=== PATIENT | female | born 1955 | race Caucasian/White ===

== ENCOUNTER 2018-06-28 02:00 | Outpatient (CLI) | payer MEDICAID, SELFPAY ==
[2018-06-28 08:29] LABS: Hemoglobin A1C 6.8 % (4.5-6.2)
[2018-06-28 09:17] LABS: COMMENT (LAB VIEW ONLY) 26.88 mg/dL
[2018-06-28 09:22] LABS: Anion Gap 12.6 mmol/L (3-11); BUN 14 mg/dL (7-18); CO2 25.4 mmol/L (21.0-32.0); CREATININE 0.72 mg/dL (0.55-1.02); Calcium 9.8 mg/dL (8.5-10.1); Chloride 104 mmol/L (98-107); Cholesterol 119 mg/dL (50-200); Glucose 85 mg/dL (70-100); HDL Cholesterol 36 mg/dL (40-60); LDL CHOLESTEROL 60 mg/dL (<100); Magnesium 2.1 mg/dL (1.8-2.4); Potassium 3.9 mmol/L (3.5-5.1); Sodium 142 mmol/L (136-145); Triglyceride 123 mg/dL (30-150)
[2018-06-29 10:16] LABS: HIV-1/2 Ag & Ab Screen Negative (NEGAT)
[2018-06-29 10:19] LABS: Hepatitis C Ab w Rflx HCV PCR Negative (NEGAT)
== END 2018-06-28 02:20 ==
PROVIDERS: PCP Nurse Practitioner Family; Visit Provider Nurse Practitioner Family
DX: I10 Essential (primary) hypertension (principal); E78.5 Hyperlipidemia, unspecified; E83.42 Hypomagnesemia; E11.319 Type 2 diabetes mellitus with unspecified diabetic retinopathy without macular edema; Z11.59 Encounter for screening for other viral diseases; Z11.4 Encounter for screening for human immunodeficiency virus [HIV]
CPT/HCPCS: 36415; 80048; 80061; 83721; 86803; 87389; 82043; 82570; 83036; 83735

== ENCOUNTER 2019-04-30 06:01 | Day surgery (SDC) | payer MEDICAID, SELFPAY ==
[2019-04-30 06:15] VITALS: BP 108/67; PULSE 92; RESP 19; TEMP 36.7; O2SAT 97
[2019-04-30] MEDS: Lactated Ringers 1,000 ML 80 ML IV (06:45)
--- NOTE | 2019-04-30 07:17 | W.COLOREPORT ---
Date of service: 04/30/19 Time of Service: 07:23 Colonoscopy Report Date of procedure: 04/30/19 Pre-op diagnosis general: Hx of polyps Post-op diagnosis procedure note: same Procedure: Colonoscopy Surgeon: Julisa Salguero Anesthesia proc note operative: other (General/ ASA 2/[place], MERCEDES) Estimated blood loss (mL): 0 Pathology: none sent Complications: None Disposition: same day Indications: 64 y/o female with history of Type 2 DM, HTN and GERD presents for colonoscopy screening pre-op. Her last screening was in 2014 , which was remarkable for tubulovillious adenoma. She denies a family history of colon cancer. She denies any changes in bowel habits including bloody or black tarry stools, abdominal pain, diarrhea or constipation. She denies constitutional symptoms. Denies use of marijuana or any other recreational or illegal drugs. Prep: Miralax/Dulcolax Procedure Start Time: 07:23 Procedure End Time: 07:51 Retraction Time: 17 minutes Findings: Marginal prep with stool throughout the colon Procedure Description: After informed consent was obtained the patient was taken to the procedure room and placed in a left decubitous position. Monitors were applied and a time out was done. The patients name, date of , procedure, allergies to medications and metal in their body was reviewed. The patient was then sedated. Once sedated and comfortable a rectal exam was done. External exam was normal. Internal exam revealed a normal sphincter tone and no palpable masses. The scope was then introduced and retro-flexed. No internal hemorrhoids were identified. The scope was then advanced to the cecum without difficulty. The TI and appendiceal orifice were identified. The prep was marginal. There was a lot of liquid and some formed stool throughout the colon. 1 L of Fluid was used to clean and suction as much of it as possible. The scope was then slowly retracted over 17 minutes back into the rectum. There were no Polyps and no diverticulosis. The scope was removed and the patient was woken up and taken back to Same day surgery in stable condition. The patient tolerated the procedure well and there were no immediate complications. Follow up: The patient should follow up in 3 years because of the marginal prep. Small polyps could have been missed.
--- NOTE | 2019-04-30 07:19 | W.PM.DSUDISC ---
Discharge Plan Disposition Patient Disposition: HOME Condition: Good Discharge Details Reason For Visit: Hx of polyps Attending Provider: Julisa Salguero Primary Care Provider: Cherri Kirkland Home Meds and New Rx's Prescriptions: Continued (DME) Blood Glucose Test Strip See Rx Instructions .ROUTE .MEDSUPPLY Qty: 100 RF: 3 (DME) lancets Misc See Rx Instructions .ROUTE .MEDSUPPLY Qty: 100 RF: 3 glipizide 5 mg tablet extended release 24hr 15 mg PO QAM Qty: 270 RF: 3 Jardiance 25 mg tablet 25 mg PO DAILY Qty: 90 RF: 3 metformin 1,000 mg tablet See Rx Instructions PO See Instructions MDD 2500 mg Qty: 225 RF: 3 (DME) blood-glucose meter [onlinetoursTouch Ultra2 Meter] 1 EACH kit 1 ea Miscellaneous QID Qty: 1 RF: 0 aspirin 81 MG tablet,delayed release (DR/EC) 81 mg PO DAILY Qty: 90 RF: 3 (DME) Futuro Restoring Medium 1 EACH misc 1 ea Miscellaneous DAILY Qty: 2 RF: 0 (DME) OneTouch Ultra Test 1 EACH strip 1 ea Miscellaneous QID Qty: 360 RF: 3 omeprazole 40 MG capsule,delayed release(DR/EC) 40 mg PO DAILY Qty: 90 RF: 3 cetirizine [Zyrtec] 10 MG tablet 10 mg PO DAILY PRNQty: 90 RF: 3 losartan 50 mg tablet 50 mg PO DAILY Qty: 90 RF: 3 atorvastatin [Lipitor] 40 mg tablet 40 mg PO DAILY Qty: 90 RF: 3 magnesium oxide 400 mg (241.3 mg magnesium) tablet 400 mg PO BID Qty: 180 RF: 3 Discharge Instructions Additional Instructions: Findings: NO polyps Follow up: 3 years because the prep was not great. There was a lot of stool still in the colon so small polyps could have been missed Please call if you develop: fevers >101.5 Nausea or Vomiting Abdominal pain that is not transient DAY SURGERY UNIT POST ENDOSCOPY INSTRUCTIONS 1. Because there will be medication in your system for the next 24 hours, you may feel a little sleepy. Your coordination will be affected. Therefore: a. Do not drive or operate dangerous equipment for 24 hours. b. Do not drink alcohol beverages for 24 hours (not even beer). c. Plan to go home and rest for the day. 2. Generally there are no restrictions on your activity after a day or so has gone by, but you may feel a bit fatigued for a few days. 3 After you arrive home you may have a light meal and return to a normal diet as you can tolerate it without feeling sick to your stomach. 4. After surgery, you may feel pain or discomfort. This should be only transient, but if it persists please contact your doctor. 5. If there are any questions regarding the findings of your procedure, please feel free to contact your doctor. 6. If you are unable to contact your doctor with a problem, contact the hospital at [phone]. 7. Continue all your regular medications unless directed otherwise. I understand the above instructions and have no questions. Signature of Patient or Responsible Adult Escort Date/Time Name of Responsible Adult Escort Signature of Nurse Date/Time Activity:: Activity as Tolerated Diet:: As Tolerated Discharge Orders Discharge Orders: Discharge Order (Routine); Ordered 04/30/19 Ordered By: Julisa Salguero
[2019-04-30 08:35] VITALS: BP 115/72; PULSE 81; RESP 18; TEMP 36.3; O2SAT 98
== END 2019-04-30 08:53 | disposition home or self-care (01) ==
PROVIDERS: PCP Nurse Practitioner Family; Visit Provider Surgery
PROC: 0DJD8ZZ Inspection of Lower Intestinal Tract, Via Natural or Artificial Opening Endoscopic (ICD-10-PCS; CPT 45378; principal; 2019-04-30 07:30)
DX: Z12.11 Encounter for screening for malignant neoplasm of colon (principal); Z86.010 Personal history of colon polyps; E11.9 Type 2 diabetes mellitus without complications; Z79.84 Long term (current) use of oral hypoglycemic drugs; I10 Essential (primary) hypertension; K21.9 Gastro-esophageal reflux disease without esophagitis
CPT/HCPCS: 45378; J2704

== ENCOUNTER 2019-05-06 09:35 | Emergency (ER) | payer MEDICAID, SELFPAY ==
[2019-05-06 09:40] VITALS: BP 133/71; PULSE 104; RESP 18; TEMP 36.8; O2SAT 97
--- NOTE | 2019-05-06 10:26 | ED.GENADUL_ITS ---
Discharge Plan Disposition Patient Disposition: HOME Condition: Stable Discharge Details Chief Complaint: Cellulitis Clinical Impression: Cellulitis Primary Care Provider: Cherri Kirkland ED Provider: Zaina Barajas Home Meds and New Rx's Prescriptions: New cephalexin [Keflex] 500 mg capsule 500 mg PO QID Qty: 40 RF: 0 No Action (DME) Blood Glucose Test Strip See Rx Instructions .ROUTE .MEDSUPPLY Qty: 100 RF: 3 (DME) lancets Misc See Rx Instructions .ROUTE .MEDSUPPLY Qty: 100 RF: 3 glipizide 5 mg tablet extended release 24hr 15 mg PO QAM Qty: 270 RF: 3 Jardiance 25 mg tablet 25 mg PO DAILY Qty: 90 RF: 3 metformin 1,000 mg tablet See Rx Instructions PO See Instructions MDD 2500 mg Qty: 225 RF: 3 (DME) blood-glucose meter [OneTouch Ultra2 Meter] 1 EACH kit 1 ea Miscellaneous QID Qty: 1 RF: 0 aspirin 81 MG tablet,delayed release (DR/EC) 81 mg PO DAILY Qty: 90 RF: 3 (DME) Futuro Restoring Medium 1 EACH misc 1 ea Miscellaneous DAILY Qty: 2 RF: 0 (DME) OneTouch Ultra Test 1 EACH strip 1 ea Miscellaneous QID Qty: 360 RF: 3 omeprazole 40 MG capsule,delayed release(DR/EC) 40 mg PO DAILY Qty: 90 RF: 3 cetirizine [Zyrtec] 10 MG tablet 10 mg PO DAILY PRNQty: 90 RF: 3 losartan 50 mg tablet 50 mg PO DAILY Qty: 90 RF: 3 atorvastatin [Lipitor] 40 mg tablet 40 mg PO DAILY Qty: 90 RF: 3 magnesium oxide 400 mg (241.3 mg magnesium) tablet 400 mg PO BID Qty: 180 RF: 3 Discharge Instructions Instructions: Cellulitis (ED) Additional Instructions: Please elevate legs as discussed. Please maintain a low-salt or no salt diet. Use compression stockings as discussed. Use antibiotic as prescribed. Have prompt recheck with your primary care doctor in the next 2 to 3 days Return to have ultrasound tomorrow morning as discussed. Continue your daily aspirin. Return for any worsening, concerns or alarming symptoms sooner if needed. Observe for any fevers, increased in redness, swelling or pain in the leg. Return immediately for concerns Discharge Data Discharge Date/Time-TO BE ENTERED AT DEPARTURE: 05/06/19 11:10 Medical Decision Making Very pleasant 64-year-old patient presenting to the emergency room for complaints of new onset of redness in the left foot. Patient reports chronic distal edema present. She is noncompliant with compression stockings does not maintain a low-salt diet. Patient is a diabetic. No complaints of open wounds or injury. Patient has no palpable tenderness of the foot does have notable diffuse erythema consistent with cellulitis. Patient has no calf pain. Swelling of her legs is unchanged and stable. Patient has no concern of injury nor do I have any concern of palpable tenderness. patient does have some crusting noted over the dorsal foot lateral ankle area likely due to physiologic drainage due to's skin stretching. Conceivably this is her source of infection. No ulcers or deep wounds noted of the foot. No pain with range of motion of calf or calf pain with palpation. Clinically I feel this patient has cellulitis although DVT is possible. We will order outpatient ultrasound to be performed in the morning. Patient is on aspirin and will continue aspirin. Patient agrees with plan of care. Spoke at length regarding low-salt diet, elevating legs and use of compression stockings. Patient reports her understanding and agrees with plan of care. Will give initial dose of Rocephin at this time plan to provide Keflex orally. Previous renal function reviewed. Will hold on any MRSA coverage agents as I have a low suspicion for MRSA at this time. Recommend close follow-up with PCP in the next 2 to 3 days. Patient put on follow-up list. Patient will call her PCP as well. The patient was stable and requested discharge. Prior to discharge, my usual and customary return precautions were reviewed with the patient - this included follow-up instructions and reasons to return to the Emergency Department if conditions worsens, does not improve as expected, or other new concerns arise. HPI General Date/Time Provider Initiated Documentation: 05/06/19 09:45 . HPI Narrative: Is a very pleasant 64-year-old patient presenting to the ER for complaints of left lower leg redness which was noted this morning. Patient reports she is a diabetic. Patient denies any injury or trauma to the leg. She does report she cares for her grandkids who occasionally stepped on her foot but she has absolutely no foot pain at this time. Patient denies any pain with ambulation. Patient does report swelling of the legs chronically which seems unchanged today. Patient's only complaint is new redness of her leg noted this morning. Patient denies any calf pain. Patient denies any difficulty breathing shortness of other wheezing. No systemic complaints. Specifically no fever, chills, nausea, vomiting. Eating and drink without difficulty. No other concerns or complaints at this time. Denies any open wounds. Related Data Home Medications Medication Instructions Recorded Confirmed blood-glucose meter [OneTouch #1 unit 08/15/14 05/07/19 Ultra2 Meter] aspirin 81 mg PO DAILY #90 tab-cap 10/09/14 05/07/19 Futuro Restoring Medium #2 ea 10/09/15 05/07/19 OneTouch Ultra Test #360 strip 11/18/16 05/07/19 omeprazole 40 mg PO DAILY #90 tab-cap 12/27/16 05/07/19 cetirizine [Zyrtec] 10 mg PO DAILY PRN #90 tab-cap 09/23/17 05/07/19 losartan 50 mg tablet 50 mg PO DAILY #90 tab-cap 06/26/18 05/07/19 atorvastatin 40 mg tablet 40 mg PO DAILY #90 tab-cap 09/06/18 05/07/19 blood sugar diagnostic #100 each 11/02/18 05/07/19 lancets #100 each 11/02/18 05/07/19 empagliflozin 25 mg tablet 25 mg PO DAILY #90 tab-cap 02/01/19 05/07/19 glipizide 5 mg tablet, extended 15 mg PO QAM #270 tab-cap 02/01/19 05/07/19 release 24 hr metformin 1,000 mg tablet See Rx Instructions PO See 02/01/19 05/07/19 Instructions #225 tab-cap MDD 2500 mg magnesium oxide 400 mg (241.3 mg 400 mg PO BID #180 tab-cap 03/05/19 05/07/19 magnesium) tablet cephalexin [Keflex] 500 mg PO QID #40 cap 05/06/19 05/07/19 Previous Rx's Medication Instructions Recorded omeprazole 40 mg PO DAILY #90 tab-cap 12/27/16 losartan 50 mg tablet 50 mg PO DAILY #90 tab-cap 06/26/18 atorvastatin 40 mg tablet 40 mg PO DAILY #90 tab-cap 09/06/18 blood sugar diagnostic #100 each 11/02/18 lancets #100 each 11/02/18 empagliflozin 25 mg tablet 25 mg PO DAILY #90 tab-cap 02/01/19 glipizide 5 mg tablet, extended 15 mg PO QAM #270 tab-cap 02/01/19 release 24 hr metformin 1,000 mg tablet See Rx Instructions PO See 02/01/19 Instructions #225 tab-cap MDD 2500 mg magnesium oxide 400 mg (241.3 mg 400 mg PO BID #180 tab-cap 03/05/19 magnesium) tablet cephalexin [Keflex] 500 mg PO QID #40 cap 05/06/19 Allergies Allergy/AdvReac Type Severity Reaction Status Date / Time metronidazole Allergy Intermediate terrible Verified 05/07/19 11:26 burning sensation in chest amlodipine AdvReac Intermediate leg Verified 05/07/19 11:26 swelling lisinopril AdvReac Intermediate Leg Verified 05/07/19 11:26 swelling General Stated Complaint: Cellulitis LIZETH: 3 Review of Systems All systems reviewed & are unremarkable except as noted in HPI and below Constitutional Constitutional: Denies chills, Denies fatigue, Denies fever(s), Denies headache(s), Denies malaise and Denies weakness ENT Ears, Nose, Mouth, and Throat: Denies headache(s) Musculoskeletal Musculoskeletal: Denies numbness and Denies tingling Integumentary/Breasts Skin/Breast: Reports erythema and Denies wounds Neurologic Neurologic: Denies headache(s), Denies numbness, Denies tingling and Denies weakness Endocrine Endocrine: Denies fatigue [facility] Medical History Allergic rhinitis (Chronic 07/03/15) Bilateral lower extremity edema (Chronic) Longstanding, worse in summer, probable venous insufficiency Colon polyp (Resolved) Last [place]: 11/22/14 w/ Dr. Kameron Moore, tubulovillous adenoma, repeat 3 years Essential hypertension (Chronic) Gastroesophageal reflux disease (Chronic 07/22/14) Atypical chest pain 2000 --> neg stress test --> GERD Hyperlipidemia, unspecified (Chronic) 06/2018 labs: lipid panel acceptable on high potency statin, continue Hypomagnesemia (Chronic 04/23/16) Immunization refused (Chronic 04/23/16) Microalbuminuria due to type 2 diabetes mellitus (Chronic 01/21/16) Mild nonproliferative diabetic retinopathy associated with type 2 diabetes mellitus (Chronic 10/09/15) B/L, also with mild hypertensive retinopathy B/L TUCKER (obstructive sleep apnea) Presbyopia (Chronic 08/26/16) Tobacco use disorder (Chronic 07/22/14) Type 2 diabetes mellitus with retinopathy (Chronic 01/21/16) Surgical History (Updated 04/30/19 @ 07:19 by Julisa Salguero MD) Adenoidectomy Colonoscopy - MAC (Resolved 04/30/19) 2015- Tubullovillous adenoma Tonsillectomy (Resolved) UPPP (Uvulopalatopharyngoplasty) (Resolved 07/22/92) Social History Smoking/Tobacco Use Status: Current every day Tobacco Type: cigarettes Smoking packs per day: 1 Smoking cigarettes per day: 20.0 Years smoked: 30 Smoking pack- years: 30.00 Alcohol Intake: never Drug use: Never Substance use type: does not use Adopted: No Caregiver/Support person: No Foster care: No Household members: spouse Number of Children: 3 Communication Needs: None Education Level: high school Details: 11th grade 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 Pets and animals: Yes Pets and animals: dog(s) Sexually active: Yes Current gender identity: female What type of physical activity do you participate in: walking Duration: 60-90 minutes/day Frequency: daily Seatbelt use: always Drive intox or ride w/intox superintendent drivers: No Water heater temp set <120 deg: Yes Working smoke detector in home: Yes Fire extinguisher in home: Yes Carbon monox detector in home: Yes Firearms in home: No Do you feel safe at home: Yes Do you feel safe in your relationship?: Yes Victim of physical abuse: No Victim of emotional abuse: No Victim of sexual abuse: No Exam Narrative Exam Narrative: CONST: Healthy appearing patient, in no acute distress. Well hydrated. Alert and oriented. CHEST: Normal insepection of the chest. RESP: Normal respiratory effort. Speaking full sentences. No cough. No audible wheezing. No retractions. Breath sounds clear bilaterally. No wheezing, rhonchi or rales CARDIO: No JVD. No murmur, regular rate and rhythm MUSCULOSKELETAL: Normal Gait. FROM of all extremities. Bilateral edema present in the ankles and feet which is symmetrical, moderate erythema of the diffuse left foot. There is mild crusting noted along the lateral ankle but no associated wounds. No ulcers noted. No obvious skin breakdown. Pulses intact. Sensation intact. Full range of motion. No bony pain with palpation. Er ythema extends from the foot just proximal to the ankle. No lymphangitis associated. SKIN: Normal. Dry. No rashes. See above note Course Vital Signs Vital signs: Vital Signs Temperature 36.8 C 05/06/19 09:40 Pulse 104 H 05/06/19 09:40 Respiratory Rate 18 05/06/19 09:40 Blood Pressure 133/71 05/06/19 09:40 Pulse Oximetry 97 05/06/19 09:40 Temperature 36.8 C 05/06/19 09:40 Temperature Source Temporal Artery Scan 05/06/19 09:40 Pulse 104 H 05/06/19 09:40 Respiratory Rate 18 05/06/19 09:40 Respiratory Effort 05/06/19 09:59 Blood Pressure 133/71 05/06/19 09:40 Blood Pressure Position Sitting 05/06/19 09:40 Pulse Oximetry 97 05/06/19 09:40 Oxygen Delivery Method Room Air 05/06/19 09:40 Oxygen Flow Rate 0 05/06/19 09:40 Pain Level 2 05/06/19 09:40
--- NOTE | 2019-05-06 10:26 | NUR.NOTE ---
Nursing Note: Referral faxed to PCP for follow up in 2 to 3 days. Eileen Michelle.
[2019-05-06] MEDS: cefTRIAXone 1 GM/50 ML BAG IVPB (10:38)
== END 2019-05-06 11:10 | disposition home or self-care (01) ==
PROVIDERS: Emergency Provider Physician Assistant; PCP Nurse Practitioner Family
DX: M79.89 Other specified soft tissue disorders (principal); Z71.2 Person consulting for explanation of examination or test findings
CPT/HCPCS: 99281; J0696

== ENCOUNTER 2019-05-07 09:05 | Outpatient (CLI) | payer MEDICAID, SELFPAY ==
--- NOTE | 2019-05-07 10:53 | DI.US_ITS ---
EXAM: US LOWER EXTREMITY VENOUS LT US LOWER EXTREMITY VENOUS LT CLINICAL HISTORY: LEG SWELLING, ? DVT. LEG SWELLING, ? DVT TECHNIQUE: Lower extremity venous ultrasound performed using grayscale, color-flow, and spectral Dop pler analysis. COMPARISON: No exams were available for comparison FINDINGS: The common femoral, femoral and popliteal veins demonstrate normal compressibility, augmentation, and color Doppler. The posterior tibial veins are patent. The saphenous vein appears free of thrombus. No Lundy's cyst or hematoma is seen. IMPRESSION: No evidence of DVT.
== END 2019-05-07 09:25 ==
PROVIDERS: PCP Nurse Practitioner Family; Visit Provider Physician Assistant
DX: R22.42 Localized swelling, mass and lump, left lower limb (principal)
CPT/HCPCS: 93971

== ENCOUNTER 2019-05-07 11:13 | Emergency (ER) | payer MEDICAID, SELFPAY ==
[2019-05-07 11:24] VITALS: BP 137/65; PULSE 89; RESP 18; TEMP 36.4; O2SAT 96
--- NOTE | 2019-05-07 11:33 | ED.GENADUL_ITS ---
Discharge Plan Disposition Patient Disposition: HOME Condition: Stable Discharge Details Chief Complaint: Recheck Clinical Impression: Left leg swelling Primary Care Provider: Cherri Kirkland ED Provider: Anamaria Pandey Home Meds and New Rx's Prescriptions: Continued (DME) Blood Glucose Test Strip See Rx Instructions .ROUTE .MEDSUPPLY Qty: 100 RF: 3 (DME) lancets Misc See Rx Instructions .ROUTE .MEDSUPPLY Qty: 100 RF: 3 glipizide 5 mg tablet extended release 24hr 15 mg PO QAM Qty: 270 RF: 3 Jardiance 25 mg tablet 25 mg PO DAILY Qty: 90 RF: 3 metformin 1,000 mg tablet See Rx Instructions PO See Instructions MDD 2500 mg Qty: 225 RF: 3 (DME) blood-glucose meter [SunriseTouch Ultra2 Meter] 1 EACH kit 1 ea Miscellaneous QID Qty: 1 RF: 0 aspirin 81 MG tablet,delayed release (DR/EC) 81 mg PO DAILY Qty: 90 RF: 3 (DME) Futuro Restoring Medium 1 EACH misc 1 ea Miscellaneous DAILY Qty: 2 RF: 0 (DME) OneTouch Ultra Test 1 EACH strip 1 ea Miscellaneous QID Qty: 360 RF: 3 omeprazole 40 MG capsule,delayed release(DR/EC) 40 mg PO DAILY Qty: 90 RF: 3 cetirizine [Zyrtec] 10 MG tablet 10 mg PO DAILY PRNQty: 90 RF: 3 losartan 50 mg tablet 50 mg PO DAILY Qty: 90 RF: 3 atorvastatin [Lipitor] 40 mg tablet 40 mg PO DAILY Qty: 90 RF: 3 magnesium oxide 400 mg (241.3 mg magnesium) tablet 400 mg PO BID Qty: 180 RF: 3 cephalexin [Keflex] 500 mg capsule 500 mg PO QID Qty: 40 RF: 0 Discharge Instructions Instructions: Leg Edema (ED) Additional Instructions: Take the antibiotics until finished. Wear your compression stockings daily. Be sure to keep your legs elevated. Be sure to control your blood sugar as high blood sugar is a risk for infection. Follow-up with your primary care doctor within 1 week. Return to the emergency department with any worsening or new concerning symptoms such as fever, worsening pain, redness or swelling. Discharge Data Discharge Date/Time-TO BE ENTERED AT DEPARTURE: 05/07/19 11:49 Discharge Physician: Anamaria Pandey Medical Decision Making 64-year-old female with history of diabetes who was seen here yesterday and diagnosed with left leg cellulitis and started on Keflex who returns today for results of her lower extremity Doppler ultrasound to rule out DVT. Left lower extremity ultrasound negative for DVT. She states she has been taking her Keflex and her redness and swelling is much improved. She was referred for an ultrasound here this morning as it was not available yesterday over the weekend. Her left leg appears minimally edematous but there is no obvious evidence of cellulitis. She is neurovascularly intact. She is wearing compression stockings. She was advised to continue her Keflex, compression stockings and elevation of her leg is much as possible. Advised to follow up with the primary care doctor for re-evaluation. Usual and customary return precautions given prior to discharge. Imaging Data Radiologic Study: Radiologist's impression: US LOWER EXTREMITY VENOUS LT CLINICAL HISTORY: LEG SWELLING, ? DVT. LEG SWELLING, ? DVT TECHNIQUE: Lower extremity venous ultrasound performed using grayscale, color- flow, and spectral Doppler analysis. COMPARISON: No exams were available for comparison FINDINGS: The common femoral, femoral and popliteal veins demonstrate normal compressibility, augmentation, and color Doppler. The posterior tibial veins are patent. The saphenous vein appears free of thrombus. No Lundy's cyst or hematoma is seen. IMPRESSION: No evidence of DVT. HPI General Mode of arrival: ambulatory . Date/Time Provider Initiated Documentation: 05/07/19 11:16 . Limitations to Documentation: no limitations . Information obtained by: patient . History of Present Illness 64 year old F presents to the emergency department with the chief complaint of here for results of doppler leg ultrasound, Patient started experiencing this minute(s) (20) No relieving factors improve symptom(s), No exacerbating factors reported . Patient notes no other symptoms.. Patient did receive the following treatments prior to arrival, other (Taking her antibiotics regularly) Related Data Home Medications Medication Instructions Recorded Confirmed blood-glucose meter [OneTouch #1 unit 08/15/14 05/07/19 Ultra2 Meter] aspirin 81 mg PO DAILY #90 tab-cap 10/09/14 05/07/19 Futuro Restoring Medium #2 ea 10/09/15 05/07/19 OneTouch Ultra Test #360 strip 11/18/16 05/07/19 omeprazole 40 mg PO DAILY #90 tab-cap 12/27/16 05/07/19 cetirizine [Zyrtec] 10 mg PO DAILY PRN #90 tab-cap 09/23/17 05/07/19 losartan 50 mg tablet 50 mg PO DAILY #90 tab-cap 06/26/18 05/07/19 atorvastatin 40 mg tablet 40 mg PO DAILY #90 tab-cap 09/06/18 05/07/19 blood sugar diagnostic #100 each 11/02/18 05/07/19 lancets #100 each 11/02/18 05/07/19 empagliflozin 25 mg tablet 25 mg PO DAILY #90 tab-cap 02/01/19 05/07/19 glipizide 5 mg tablet, extended 15 mg PO QAM #270 tab-cap 02/01/19 05/07/19 release 24 hr metformin 1,000 mg tablet See Rx Instructions PO See 02/01/19 05/07/19 Instructions #225 tab-cap MDD 2500 mg magnesium oxide 400 mg (241.3 mg 400 mg PO BID #180 tab-cap 03/05/19 05/07/19 magnesium) tablet cephalexin [Keflex] 500 mg PO QID #40 cap 05/06/19 05/07/19 Previous Rx's Medication Instructions Recorded omeprazole 40 mg PO DAILY #90 tab-cap 12/27/16 losartan 50 mg tablet 50 mg PO DAILY #90 tab-cap 06/26/18 atorvastatin 40 mg tablet 40 mg PO DAILY #90 tab-cap 09/06/18 blood sugar diagnostic #100 each 11/02/18 lancets #100 each 11/02/18 empagliflozin 25 mg tablet 25 mg PO DAILY #90 tab-cap 02/01/19 glipizide 5 mg tablet, extended 15 mg PO QAM #270 tab-cap 02/01/19 release 24 hr metformin 1,000 mg tablet See Rx Instructions PO See 02/01/19 Instructions #225 tab-cap MDD 2500 mg magnesium oxide 400 mg (241.3 mg 400 mg PO BID #180 tab-cap 03/05/19 magnesium) tablet cephalexin [Keflex] 500 mg PO QID #40 cap 05/06/19 Allergies Allergy/AdvReac Type Severity Reaction Status Date / Time metronidazole Allergy Intermediate terrible Verified 05/07/19 11:26 burning sensation in chest amlodipine AdvReac Intermediate leg Verified 05/07/19 11:26 swelling lisinopril AdvReac Intermediate Leg Verified 05/07/19 11:26 swelling General Stated Complaint: Recheck LIZETH: 4 Review of Systems All systems reviewed & are unremarkable except as noted in HPI and below PFSH Surgical History (Updated 04/30/19 @ 07:19 by Julisa Salguero MD) Adenoidectomy Colonoscopy - MAC (Resolved 04/30/19) 2015- Tubullovillous adenoma Tonsillectomy (Resolved) UPPP (Uvulopalatopharyngoplasty) (Resolved 07/22/92) Social History Smoking/Tobacco Use Status: Current every day Tobacco Type: cigarettes Smoking packs per day: 1 Smoking cigarettes per day: 20.0 Years smoked: 30 Smoking pack- years: 30.00 Alcohol Intake: never Drug use: Never Substance use type: does not use Adopted: No Caregiver/Support person: No Foster care: No Household members: spouse Number of Children: 3 Communication Needs: None Education Level: high school Details: 11th grade 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 Pets and animals: Yes Pets and animals: dog(s) Sexually active: Yes Current gender identity: female What type of physical activity do you participate in: walking Duration: 60-90 minutes/day Frequency: daily Seatbelt use: always Drive intox or ride w/intox carry all driver: No Water heater temp set <120 deg: Yes Working smoke detector in home: Yes Fire extinguisher in home: Yes Carbon monox detector in home: Yes Firearms in home: No Do you feel safe at home: Yes Do you feel safe in your relationship?: Yes Victim of physical abuse: No Victim of emotional abuse: No Victim of sexual abuse: No Exam Const General: cooperative, healthy appearing and no acute distress HENMT Head: normal to inspection Mouth: oral mucosae normal Eyes General: appearance normal, both eyes and all related structures Neck Neck: normal visual inspection Resp Effort & Inspection: normal respiratory effort and able to speak in complete sentences Cardio Rate: regular rate Skin General skin exam: no rashes or lesions noted Neuro General: alert, awake and oriented x3 Motor: muscle tone normal throughout Extrem Other: Mild to moderate edema of left lower leg. No evidence of cellulitis noted to left leg or foot. Left DP and PT pulses intact. Psych Appearance: grossly normal Affect: normal affect Course Vital Signs Vital signs: Vital Signs Temperature 97.5 F L 05/07/19 11:24 Pulse 89 05/07/19 11:24 Respiratory Rate 18 05/07/19 11:24 Blood Pressure 137/65 05/07/19 11:24 Pulse Oximetry 96 05/07/19 11:24 Temperature 97.5 F L 05/07/19 11:24 Pulse 89 05/07/19 11:24 Respiratory Rate 18 05/07/19 11:24 Respiratory Effort Non-Labored 05/07/19 11:27 Blood Pressure 137/65 05/07/19 11:24 Blood Pressure Position Supine 05/07/19 11:24 Pulse Oximetry 96 05/07/19 11:24 Oxygen Delivery Method Room Air 05/07/19 11:24 Oxygen Flow Rate 0 05/07/19 11:24 Pain Level 0 05/07/19 11:24
== END 2019-05-07 11:49 | disposition home or self-care (01) ==
PROVIDERS: Emergency Provider Physician Assistant; PCP Nurse Practitioner Family
DX: R22.42 Localized swelling, mass and lump, left lower limb (principal); E11.9 Type 2 diabetes mellitus without complications; Z79.84 Long term (current) use of oral hypoglycemic drugs

== ENCOUNTER 2019-10-23 04:08 | Outpatient (CLI) | payer MEDICAID, SELFPAY ==
[2019-10-23 08:28] LABS: Hemoglobin A1C 6.5 % (3.8-5.6)
[2019-10-23 09:30] LABS: Anion Gap 9.6 mmol/L (3-11); BUN 13 mg/dL (7-18); CO2 25.4 mmol/L (21.0-32.0); CREATININE 0.75 mg/dL (0.55-1.02); Calcium 9.7 mg/dL (8.5-10.1); Calculated LDL 81 mg/dL (<100); Chloride 107 mmol/L (98-107); Cholesterol 141 mg/dL (<200); Glucose 96 mg/dL (74-106); HDL Cholesterol 47 mg/dL (40-60); Potassium 4.6 mmol/L (3.5-5.1); Sodium 142 mmol/L (136-145); Triglyceride 66 mg/dL (<150)
[2019-10-23 10:18] LABS: COMMENT (LAB VIEW ONLY) < 13.00 mg/dL
== END 2019-10-23 04:28 ==
PROVIDERS: PCP Nurse Practitioner Family; Visit Provider Nurse Practitioner Family
DX: I10 Essential (primary) hypertension; E78.5 Hyperlipidemia, unspecified; E11.9 Type 2 diabetes mellitus without complications
CPT/HCPCS: 36415; 80048; 80061; 82043; 82570; 83036

== ENCOUNTER 2020-10-11 17:27 | Emergency (ER) | payer MEDICAID, SELFPAY ==
[2020-10-11 17:35] VITALS: BP 142/68; PULSE 100; RESP 20; O2SAT 96
--- NOTE | 2020-10-11 17:43 | ED.GENADUL_ITS ---
Discharge Plan Disposition Patient Disposition: HOME Condition: Improving Discharge Details Clinical Impression: Cellulitis of leg, right Primary Care Provider: Cherri Kirkland ED Provider: Kolton Kuhn Home Meds and New Rx's Prescriptions: New cephalexin 500 mg tablet 500 mg PO TID 7 Days Qty: 21 RF: 0 Continued (DME) Blood Glucose Test Strip See Rx Instructions .ROUTE .MEDSUPPLY Qty: 100 RF: 3 (DME) lancets Misc See Rx Instructions .ROUTE .MEDSUPPLY Qty: 100 RF: 3 glipizide 5 mg tablet extended release 24hr 15 mg PO QAM Qty: 270 RF: 3 atorvastatin [Lipitor] 40 mg tablet 40 mg PO DAILY Qty: 90 RF: 3 losartan 50 mg tablet 75 mg PO DAILY Qty: 135 RF: 3 (DME) blood-glucose meter [OneTouch Ultra2 Meter] 1 EACH kit 1 ea Miscellaneous QID Qty: 1 RF: 0 aspirin 81 MG tablet,delayed release (DR/EC) 81 mg PO DAILY Qty: 90 RF: 3 (DME) compression socks, medium [Futuro Restoring Medium] 1 EACH misc 1 ea Miscellaneous DAILY Qty: 2 RF: 0 (DME) OneTouch Ultra Test 1 EACH strip 1 ea Miscellaneous QID Qty: 360 RF: 3 omeprazole 40 MG capsule,delayed release(DR/EC) 40 mg PO DAILY Qty: 90 RF: 3 Jardiance 25 mg tablet 25 mg PO DAILY Qty: 90 RF: 3 magnesium oxide 400 mg (241.3 mg magnesium) tablet 400 mg PO BID Qty: 180 RF: 3 metformin 1,000 mg tablet See Rx Instructions PO See Instructions MDD 2500 mg Qty: 225 RF: 3 Discharge Instructions Instructions: Cellulitis (ED) Additional Instructions: Elevate above the level of the heart to reduce swelling. Take antibiotics every 6 hours today and then begin 3 times daily with prescription tomorrow. Continue your routine medications. Return to the emergency department for any acute concerns. Follow-up with regular doctor if not improved in 5 days time. Medical Decision Making This is a 65-year-old female diabetic who presents with right lower extremity pretibial erythema that she noticed today. She has evidence of cracked and scaly skin, but no lesions or sores. There is no evidence of DVT. She has had lower extremity cellulitis in the past is responded well to Keflex. I will place her on a course of Keflex. She understands indications to seek repeat evaluation. She is stable and appropriate for discharge home at this time. HPI General Mode of arrival: ambulatory . Date/Time Provider Initiated Documentation: 10/11/20 17:27 . Limitations to Documentation: no limitations . Information obtained by: patient . History of Present Illness 65 year old F presents to the emergency department with the chief complaint of Right anterior aguirre erythema, described as mild and similar to prior episodes, Quality is described as constant, and is localized to the right and lower extremity. Patient reports no radiation. Patient started experiencing this hour(s) and it has been constant. No relieving factors improve symptom(s), No exacerbating factors reported . Patient notes denies fever/chills, malaise and weakness. Patient did receive the following treatments prior to arrival, none Related Data Home Medications Medication Instructions Recorded Confirmed blood-glucose meter [OneTouch #1 unit 08/15/14 07/31/20 Ultra2 Meter] aspirin 81 mg PO DAILY #90 tab-cap 10/09/14 10/11/20 compression socks, medium [Futuro #2 ea 10/09/15 07/31/20 Restoring Medium] OneTouch Ultra Test #360 strip 11/18/16 07/31/20 omeprazole 40 mg PO DAILY #90 tab-cap 12/27/16 10/11/20 blood sugar diagnostic #100 each 11/02/18 07/31/20 lancets #100 each 11/02/18 07/31/20 empagliflozin 25 mg tablet 25 mg PO DAILY #90 tab-cap 01/19/20 10/11/20 magnesium oxide 400 mg (241.3 mg 400 mg PO BID #180 tab-cap 01/21/20 10/11/20 magnesium) tablet metformin 1,000 mg tablet See Rx Instructions PO See 01/21/20 10/11/20 Instructions #225 tab-cap MDD 2500 mg losartan 50 mg tablet 75 mg PO DAILY #135 tab-cap 05/01/20 10/11/20 atorvastatin 40 mg tablet 40 mg PO DAILY #90 tab-cap 07/31/20 10/11/20 glipizide 5 mg tablet, extended 15 mg PO QAM #270 tab-cap 07/31/20 10/11/20 release 24 hr cephalexin 500 mg PO TID 7 Days #21 tab 10/11/20 Previous Rx's Medication Instructions Recorded omeprazole 40 mg PO DAILY #90 tab-cap 12/27/16 blood sugar diagnostic #100 each 11/02/18 lancets #100 each 11/02/18 empagliflozin 25 mg tablet 25 mg PO DAILY #90 tab-cap 01/19/20 magnesium oxide 400 mg (241.3 mg 400 mg PO BID #180 tab-cap 01/21/20 magnesium) tablet metformin 1,000 mg tablet See Rx Instructions PO See 01/21/20 Instructions #225 tab-cap MDD 2500 mg losartan 50 mg tablet 75 mg PO DAILY #135 tab-cap 05/01/20 atorvastatin 40 mg tablet 40 mg PO DAILY #90 tab-cap 07/31/20 glipizide 5 mg tablet, extended 15 mg PO QAM #270 tab-cap 07/31/20 release 24 hr cephalexin 500 mg PO TID 7 Days #21 tab 10/11/20 Allergies Allergy/AdvReac Type Severity Reaction Status Date / Time amlodipine AdvReac Intermediate leg Verified 10/11/20 17:39 swelling lisinopril AdvReac Intermediate Leg Verified 10/11/20 17:39 swelling metronidazole AdvReac Intermediate terrible Verified 10/11/20 17:39 burning sensation in chest General Stated Complaint: Cellulitis LIZETH: 3 Review of Systems Narrative: No fever or chills, no direct trauma or skin breakdown. Patient states she has otherwise been well. 4 systems reviewed and otherwise negative [facility] Medical History (Updated 10/11/20 @ 17:47 by Kolton uKhn MD) Allergic rhinitis (07/03/15) Bilateral lower extremity edema Longstanding, worse in summer, probable venous insufficiency Colon polyp Last [place]: 11/22/14 w/ Dr. Kameron Moore, tubulovillous adenoma, repeat 3 years Essential hypertension Gastroesophageal reflux disease (07/22/14) Atypical chest pain 2000 --> neg stress test --> GERD Hyperlipidemia, unspecified 06/2018 labs: lipid panel acceptable on high potency statin, continue Hypomagnesemia (04/23/16) Immunization refused (04/23/16) Microalbuminuria due to type 2 diabetes mellitus (01/21/16) Mild nonproliferative diabetic retinopathy associated with type 2 diabetes mellitus (10/09/15) B/L, also with mild hypertensive retinopathy B/L TUCKER (obstructive sleep apnea) Presbyopia (08/26/16) Tobacco use disorder (07/22/14) Type 2 diabetes mellitus with retinopathy (01/21/16) Surgical History Adenoidectomy Colonoscopy - MAC (04/30/19) 2015- Tubullovillous adenoma Tonsillectomy UPPP (Uvulopalatopharyngoplasty) (07/22/92) Family History Mother Arthritis Asthma Father Arthritis Son Asthma Daughter Asthma Daughter Asthma Sister Diabetes Brother Diabetes Brother Diabetes Social History Smoking/Tobacco Use Status: Current every day Tobacco Type: cigarettes Smoking packs per day: 1 Smoking cigarettes per day: 20.0 Years smoked: 30 Smoking pack- years: 30.00 Quit status: considering quitting (Has cut back some) Smoking risk assessment performed?: Yes Alcohol Intake: never Drug use: Never Substance use type: does not use Adopted: No Caregiver/Support person: No Foster care: No Household members: spouse Number of Children: 3 Communication Needs: None Education Level: high school Details: 11th grade 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 Pets and animals: Yes Pets and animals: dog(s) Sexually active: Yes Current gender identity: female What type of physical activity do you participate in: walking Duration: 60-90 minutes/day Frequency: daily Seatbelt use: always Drive intox or ride w/intox pile driver operator: No Water heater temp set <120 deg: Yes Working smoke detector in home: Yes Fire extinguisher in home: Yes Carbon monox detector in home: Yes Firearms in home: No Do you feel safe at home: Yes Do you feel safe in your relationship?: Yes Victim of physical abuse: No Victim of emotional abuse: No Victim of sexual abuse: No Exam Narrative Exam Narrative: GEN: awake, alert, oriented 3. Pleasant, well groomed, interactive. HEAD: Normocephalic, atraumatic CHEST/RESP: Nontender, clear to auscultation bilateral, no wheeze/rhonchi/rales CARDIOVASCULAR: RRR, no murmur, rub tejas. 2+ Rad pulse bilateral EXT: Full ROM, trace pretibial edema bilaterally, scaling skin right anterior aguirre and blanching, mildly warm erythema present right anterior aguirre. No posterior calf tenderness, cords, or swelling present. Neuro: Grossly normal neurologic exam, conversant, interactive. Psych: Speech fluent, thoughts congruent, affect normal Course Vital Signs Vital signs: Vital Signs Pulse 100 H 10/11/20 17:35 Respiratory Rate 20 10/11/20 17:35 Blood Pressure 142/68 H 10/11/20 17:35 Pulse Oximetry 96 10/11/20 17:35 Pulse 100 H 10/11/20 17:35 Respiratory Rate 20 10/11/20 17:35 Respiratory Effort Non-Labored 10/11/20 17:41 Blood Pressure 142/68 H 10/11/20 17:35 Blood Pressure Position Sitting 10/11/20 17:35 Pulse Oximetry 96 10/11/20 17:35 Oxygen Delivery Method Room Air 10/11/20 17:35 Oxygen Flow Rate 0 10/11/20 17:35 Pain Level 3 10/11/20 17:35
[2020-10-11] MEDS: Cephalexin 500 MG CAP, 4 CAPS/BTL PO (17:54)
== END 2020-10-11 17:56 | disposition home or self-care (01) ==
PROVIDERS: Emergency Provider Emergency Medicine; PCP Nurse Practitioner Family
DX: L03.115 Cellulitis of right lower limb (principal)
CPT/HCPCS: 99283

== ENCOUNTER 2020-10-24 03:22 | Outpatient (CLI) | payer MEDICAID, SELFPAY ==
[2020-10-24 09:21] LABS: ALT 27 U/L (14-59); AST 13 U/L (15-37); Albumin 3.7 g/dL (3.4-5.0); Alkaline Phosphatase 121 U/L (46-116); Anion Gap 9.7 mmol/L (3-11); BUN 15 mg/dL (7-18); Bilirubin, Total 0.4 mg/dL (0.2-1.0); CO2 24.3 mmol/L (21.0-32.0); CREATININE 0.9 mg/dL (0.55-1.02); Calcium 9.7 mg/dL (8.5-10.1); Chloride 108 mmol/L (98-107); Glucose 80 mg/dL (74-106); Magnesium 2.5 mg/dL (1.8-2.4); Potassium 4.3 mmol/L (3.5-5.1); Sodium 142 mmol/L (136-145); Total Protein 6.8 g/dL (6.4-8.2)
[2020-10-24 09:24] LABS: Hemoglobin A1C 7.1 % (<5.7)
[2020-10-24 18:06] LABS: COMMENT (LAB VIEW ONLY) 16.16 mg/dL
[2020-10-24 22:18] LABS: Calculated LDL 59 mg/dL (<100); Cholesterol 119 mg/dL (<200); HDL Cholesterol 42 mg/dL (40-60); Triglyceride 90 mg/dL (<150)
== END 2020-10-24 03:23 | disposition home or self-care (01) ==
LOC: LBO 03:22
PROVIDERS: PCP Nurse Practitioner Family; Visit Provider Nurse Practitioner Family
DX: I10 Essential (primary) hypertension (principal); E11.9 Type 2 diabetes mellitus without complications; E78.5 Hyperlipidemia, unspecified; E83.42 Hypomagnesemia
CPT/HCPCS: 36415; 80053; 80061; 82043; 82570; 83036; 83735

== ENCOUNTER 2022-03-02 20:06 | Emergency (ER) | payer MEDICARE, MEDICAID, SELFPAY ==
[2022-03-02] VITALS (26 sets, daily range): BP systolic 99–154; BP diastolic 61–74; PULSE 78–98; RESP 13–24; TEMP 36.9; O2SAT 95–99
--- NOTE | 2022-03-02 20:00 | RT.EKG_ITS ---
APPROVED REPORT Exam: Resting ECG Reason for Exam: Burning in chest Patient Location: E HR:91 bpm ECG Measurements Heart Rate 91 AXIS MT 151 P 75 QRSd 88 QRS 36 QT 373 T 60 QTc 458 Conclusion Sinus rhythm...normal P axis, V-rate 60- 99 Low voltage, extremity leads...all extremity leads <0.5mV. Sinus. Normal axis. No STEMI. I have reviewed and interpreted ECG and agree with software generated interpretation.
--- NOTE | 2022-03-02 20:18 | ED.GENADUL_ITS ---
Discharge Plan Disposition Patient Disposition: Home Condition: Improving Discharge Details Clinical Impression: Burning chest pain Primary Care Provider: Cherri Kirkland ED Provider: Anamaria Pandey Home Meds and New Rx's Prescriptions: New sucralfate [Carafate] 1 gram tablet 1 gm PO QACHS Qty: 14 0RF Continued fluticasone propionate 50 mcg/actuation spray,suspension 1 - 2 spray NS DAILY PRN (Reason: nasal congestion) Qty: 47.4 3RF atorvastatin [Lipitor] 40 mg tablet 40 mg PO DAILY Qty: 90 3RF glipizide 5 mg tablet extended release 24 hr 15 mg PO QAM Qty: 270 3RF Rx Instructions: Take 15 mg once daily with breakfast or first meal of the day (DME) lancets Misc See Rx Instructions .ROUTE .MEDSUPPLY Qty: 100 3RF Rx Instructions: As directed to check morning fasting blood glucose. No insulin. Dispense covered brand. (DME) Blood Glucose Test Strip See Rx Instructions .ROUTE .MEDSUPPLY Qty: 100 3RF Rx Instructions: As directed to check daily morning fasting blood glucose. No insulin. Dispense covered brand. magnesium oxide 400 mg (241.3 mg magnesium) tablet 400 mg PO BID Qty: 180 3RF metformin 1,000 mg tablet See Rx Instructions PO See Instructions MDD 2500 mg Qty: 225 3RF Dose Instruction: Take 1000 mg (1 pill) in the AM, 500 mg (1/2 pill) midday, & 1000 mg in the PM for a total daily dose of 2500 mg PO See Instructions; Take 1000 mg (1 pill) in the AM, 500 mg (1/2 pill) midday, & 1000 mg in the PM for a total daily dose of 2500 mg PO Rx Instructions: Take 1000 mg (1 pill) in the AM, 500 mg (1/2 pill) midday, & 1000 mg in the PM for a total daily dose of 2500 mg PO Jardiance 25 mg tablet 25 mg PO DAILY Qty: 90 3RF cimetidine 200 mg tablet 200 mg PO QHS (DME) blood-glucose meter [[employer] Ultra2 Meter] 1 EACH kit 1 ea Miscellaneous QID Qty: 1 Rx Instructions: New diagnosis of DM to check glucose 6 times daily for medication adjustment. aspirin 81 MG tablet,delayed release (DR/EC) 81 mg PO DAILY Qty: 90 (DME) compression socks, medium [Fut[employer] Restoring Medium] 1 EACH misc 1 ea Miscellaneous DAILY Qty: 2 Rx Instructions: FOR VENOUS INSUFFICIENCY Please measure pt for appropriate size losartan 50 mg tablet 75 mg PO DAILY Qty: 135 3RF Discharge Instructions Instructions: Chest Pain (ED), Diet for Stomach Ulcers and Gastritis (ED), GERD (Gastroesophageal Reflux Disease) (ED) Additional Instructions: Your blood tests, EKG and imaging today are reassuring and show no evidence of acute concerning or significant findings. It would be recommended to check a repeat blood test for further evaluation of your heart, but you have decided to leave. It is recommended that you speak with your primary care doctor tomorrow to schedule a follow-up appointment for reevaluation and for referral for outpatient stress test or upper endoscopy if your symptoms do not improve or worsen. Continue taking an lcro-bnl-pgossco H2 chantale such as Pepcid or an pdsr-ovz-kqkfkgp proton pump inhibitor such as Prilosec once daily. A prescription for Carafate has been sent electronically to your pharmacy to take as directed. Return immediately to the emergency department if you develop any worsening or new concerning symptoms. Referrals: Timothy Abdullahi MD [ [facility] STAFF PHYSICIAN] - Discharge Data Discharge Date/Time-TO BE ENTERED AT DEPARTURE: 03/02/22 23:15 Discharge Physician: Anamaria Pandey Medical Decision Making 2029 -- 67yo F w/ history of hypertension, hyperlipidemia, GERD, diabetes, obstructive sleep apnea presents for a complaint of burning chest pain for the past 8 hours. EKG on arrival notes a rate of 91, sinus, normal axis, no STEMI. Blood pressure mildly hypertensive, heart rate 90s. Remainder of vitals within normal limits. Patient appears comfortable and nontoxic. Chest is normal to inspection and palpation. Lungs clear bilaterally. No lower extremity edema. History and presentation does not appear consistent with ACS, PE or dissection. Considering her age and history, will obtain screening labs, chest x-ray. Will give Pepcid, Carafate, GI cocktail and reassess. Currently Mylanta is on backorder so we will give viscous lidocaine. 2244 -- Labs and imaging reviewed and unremarkable. Troponin negative. Lipase within normal limits. Glucose elevated to 232 but with reassuring bicarb and normal anion gap. Chest x-ray within normal limits. Patient reassessed and she is pain-free and is requesting to go home. Patient states she does not want to stay for a repeat troponin. Risks of or disability due to missed or delayed diagnoses explained and patient understands and demonstrates capacity to make decisions. She states she is taking her to the PCP office tomorrow. She is advised to discuss with her PCP her symptoms and to schedule follow-up appointment for reevaluation and for referral for outpatient upper endoscopy and/or stress test if her symptoms do not improve or worsen. She is advised to take a daily nkfd-aqc-vabsrpc H2 chantale or PPI. A prescription for Carafate sent electronically to her pharmacy. Usual and customary return precautions given prior to discharge. Medical Records Medical records reviewed: Yes I reviewed the patient's medical records. Imaging Data Radiologic Study: Radiologist's impression: XR Chest Exam date and time: 03/02/2022 9:27 PM Age: 67 years old Clinical indication: Sternal or substernal pain; Patient HX: Chest pain. R/O acute disease TECHNIQUE: Imaging protocol: Radiologic exam of the chest. Views: 2 views. COMPARISON: No relevant prior studies available. FINDINGS: Lungs:? Mild chronic interstitial prominence. No consolidation. Pleural spaces: No pleural effusion. No pneumothorax. Heart/Mediastinum:? Mildly tortuous aorta. No cardiomegaly. Bones/joints: Unremarkable. IMPRESSION: No acute findings. Lab Data Lab results reviewed: Yes I reviewed the patient's lab results. Labs: Laboratory Tests Range/Units 03/02/22 03/02/22 03/02/22 20:30 20:30 20:30 WBC (4.4-10.8) 10^3/uL 4.68 RBC (3.93-5.22) 10^6/uL 4.68 Hgb (11.2-15.7) g/dL 14.1 Hct (36.0-46.0) % 41.1 MCV (80-95) fL 88 MCH (27.0-33.0) pg 30.1 MCHC (32.0-36.0) % 34.3 RDW (11.7-14.6) % 13.2 Plt Count (130-400) 10^3/uL 211 MPV (8.0-11.0) fL 8.5 Immature Gran % 0.2 Neutrophils % 45.7 Lymphocytes % 42.1 Monocytes % 9.4 Eosinophils % 1.7 Basophils % 0.9 Nucleated RBC % (0.0-0.3) % 0.0 Absolute Neutrophils (1.2-6.7) 10^3/uL 2.14 Absolute Lymphocytes (1.2-3.4) 10^3/uL 1.97 Absolute Monocytes (0.1-0.8) 10^3/uL 0.44 Absolute Eosinophils (0.0-0.7) 10^3/uL 0.08 Absolute Basophils (0.0-0.2) 10^3/uL 0.04 Sodium (136-145) mmol/L 140 Potassium (3.5-5.1) mmol/L 3.9 Chloride (98-107) mmol/L 100 Carbon Dioxide (21.0-32.0) mmol/L 33.3 H Anion Gap (3-11) mmol/L 6.7 BUN (7-18) mg/dL 20 H Creatinine (0.55-1.02) mg/dL 1.1 H Est GFR (CKD-EPI 2020) (mL/min/1.73m2) 55.42 Glucose (74-106) mg/dL 238 H Calcium (8.5-10.1) mg/dL 9.3 Magnesium (1.8-2.4) mg/dL 2.2 Total Bilirubin (0.2-1.0) mg/dL 0.4 AST (15-37) U/L 14 L ALT (14-59) U/L 24 Alkaline Phosphatase (46-116) U/L 104 Troponin I (<or=60) ng/L < 50 Total Protein (6.4-8.2) g/dL 6.8 Albumin (3.4-5.0) g/dL 3.6 Lipase (73-393) U/L 95 ECG Data Attestation: I personally reviewed and interpreted this ECG (s) as follows: Interpretation: rate of 91, sinus, normal axis, no stemi. Sign Out No HPI General Mode of arrival: ambulatory . Date/Time Provider Initiated Documentation: 03/02/22 20:08 . Limitations to Documentation: no limitations . Information obtained by: patient . HPI Narrative: Pt is a 67yo F w/ a h/o hypertension, hyperlipidemia, GERD, diabetes, TUCKER and tobacco smoking who presents for a complaint of burning chest pain since noon today. Patient states she drank coffee and ate a raspberry doughnut earlier today. She states around noon she developed substernal burning chest pain. She states the pain was 8/10 at its worst and is currently 3/10. She denies any ration of pain or known worsening with food after the pain started. She states she has started with a dry cough recently but denies any fever, sore throat, difficulty breathing, dizziness, vomiting or diarrhea. She states she took an nnaa-jaj-mnzbcri antacid in addition to Tums today which help with belching but no significant relief of pain. She denies any recent travel, recent surgery, leg pain or swelling. Related Data Home Medications Medication Instructions Recorded Confirmed blood-glucose meter ([employer]Touch #1 unit 08/15/14 02/04/22 Ultra2 Meter kit) aspirin 81 mg tablet,delayed 81 mg PO DAILY #90 tab-caps 10/09/14 02/04/22 release compression socks, medium (Futuro #2 ea 10/09/15 02/04/22 Restoring Medium) cimetidine 200 mg tablet 200 mg PO QHS 10/30/20 02/04/22 losartan 50 mg tablet 75 mg PO DAILY #135 tab-caps 04/24/21 02/04/22 atorvastatin 40 mg tablet (Lipitor) 40 mg PO DAILY #90 tab-caps 08/06/21 02/04/22 blood sugar diagnostic (Blood #100 ea 08/06/21 02/04/22 Glucose Test strips) fluticasone propionate 50 1 - 2 spray NS DAILY PRN nasal 08/06/21 02/04/22 mcg/actuation nasal congestion #47.4 grams spray,suspension glipizide 5 mg tablet, extended 15 mg PO QAM #270 tab-caps 08/06/21 02/04/22 release 24 hr lancets #100 ea 08/06/21 02/04/22 empagliflozin 25 mg tablet 25 mg PO DAILY #90 tab-caps 02/04/22 02/04/22 (Jardiance) magnesium oxide 400 mg (241.3 mg 400 mg PO BID #180 tab-caps 02/04/22 02/04/22 magnesium) tablet metformin 1,000 mg tablet See Rx Instructions PO See 02/04/22 02/04/22 Instructions #225 tab-caps sucralfate 1 gram tablet (Carafate) 1 gm PO QACHS #14 tabs 03/02/22 Previous Rx's Medication Instructions Recorded losartan 50 mg tablet 75 mg PO DAILY #135 tab-caps 04/24/21 atorvastatin 40 mg tablet (Lipitor) 40 mg PO DAILY #90 tab-caps 08/06/21 blood sugar diagnostic (Blood #100 ea 08/06/21 Glucose Test strips) fluticasone propionate 50 1 - 2 spray NS DAILY PRN nasal 08/06/21 mcg/actuation nasal congestion #47.4 grams spray,suspension glipizide 5 mg tablet, extended 15 mg PO QAM #270 tab-caps 08/06/21 release 24 hr lancets #100 ea 08/06/21 empagliflozin 25 mg tablet 25 mg PO DAILY #90 tab-caps 02/04/22 (Jardiance) magnesium oxide 400 mg (241.3 mg 400 mg PO BID #180 tab-caps 02/04/22 magnesium) tablet metformin 1,000 mg tablet See Rx Instructions PO See 02/04/22 Instructions #225 tab-caps sucralfate 1 gram tablet (Carafate) 1 gm PO QACHS #14 tabs 03/02/22 Allergies Allergy/AdvReac Type Severity Reaction Status Date / Time amlodipine AdvReac Intermediate leg Verified 02/04/22 10:59 swelling lisinopril AdvReac Intermediate Leg Verified 02/04/22 10:59 swelling metronidazole AdvReac Intermediate terrible Verified 02/04/22 10:59 burning sensation in chest General Stated Complaint: Chest Pain LIZETH: 3 Review of Systems All systems reviewed & are unremarkable except as noted in HPI and below Constitutional Constitutional: Reports as per HPI, Denies chills and Denies fever(s) Eyes Eyes: Denies blurry vision ENT Ears, Nose, Mouth, and Throat: Denies dizziness, Denies sore throat and Denies throat swelling Cardiovascular Cardiovascular: Reports chest pain and Denies dyspnea Respiratory Respiratory: Denies cough and Denies dyspnea Gastrointestinal Gastrointestinal: Denies abdominal pain, Denies diarrhea and Denies vomiting Genitourinary Genitourinary: Denies hematuria and Denies dysuria Musculoskeletal Musculoskeletal: Denies back pain and Denies numbness Integumentary/Breasts Skin/Breast: Denies lesions and Denies rash Neurologic Neurologic: Denies dizziness, Denies localized weakness and Denies numbness Allergic/Immunologic Allergic/Immunologic: Denies throat swelling PFSH All Active Problems (Updated 03/02/22 @ 23:02 by Anamaria Pandey DO) Burning chest pain (Acute) Nuclear sclerotic cataract (Acute 04/28/21) 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 edema (Acute 04/28/21) Hyperlipidemia, unspecified (Chronic) 06/2018 labs: lipid panel acceptable on high potency statin, continue Essential hypertension (Chronic) Type 2 diabetes mellitus with retinopathy (Chronic 01/21/16) Tobacco use disorder (Chronic 07/22/14) Presbyopia (Chronic 08/26/16) Mild nonproliferative diabetic retinopathy associated with type 2 diabetes mellitus (Chronic 10/09/15) B/L, also with mild hypertensive retinopathy B/L Microalbuminuria due to type 2 diabetes mellitus (Chronic 01/21/16) Immunization refused (Chronic 04/23/16) Hypomagnesemia (Chronic 04/23/16) Gastroesophageal reflux disease (Chronic 07/22/14) Atypical chest pain 2000 --> neg stress test --> GERD Bilateral lower extremity edema (Chronic) Longstanding, worse in summer, probable venous insufficiency Allergic rhinitis (Chronic 07/03/15) Medical History (Updated 03/02/22 @ 23:02 by Anamaria Pandey DO) Colon polyp Last [place]: 11/22/14 w/ Dr. Kameron Moore, tubulovillous adenoma, repeat 3 years TUCKER (obstructive sleep apnea) Surgical History Adenoidectomy Colonoscopy - MAC (04/30/19) 2014- Tubullovillous adenoma Tonsillectomy UPPP (Uvulopalatopharyngoplasty) (07/22/92) Family History Mother Arthritis Asthma Father Arthritis Son Asthma Daughter Asthma Daughter Asthma Sister Diabetes Brother Diabetes Brother Diabetes Social History Smoking/Tobacco Use Status: Current every day Tobacco Type: cigarettes Smoking packs per day: 1 Smoking cigarettes per day: 20.0 Years smoked: 30 Smoking pack- years: 30.00 Tobacco: How many years used: 25 Quit status: has quit before (Has cut back some) Smoking risk assessment performed?: Yes Alcohol Intake: never Drug use: Never Substance use type: does not use Adopted: No Caregiver/Support person: No Foster care: No Household members: spouse Housing: house Number of Children: 3 number of grandchildren: 7 Communication Needs: None Education Level: high school Details: 11th grade 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 Pets and animals: Yes Pets and animals: dog(s) Sexually active: Yes Do you think of yourself as: straight/heterosexual Current gender identity: female What is your relationship status?: How often do you talk on the phone with friends or family?: three or more times per week How often do you get together with friends or relatives?: twice per week Do you belong to any clubs or organized social groups?: no Panel score (0-1 are the most socially isolated patients): 2 What type of physical activity do you participate in: none Special fortino needs: No Seatbelt use: always Helmet use: No Drive intox or ride w/intox dolly driver: No Water heater temp set <120 deg: Yes Working smoke detector in home: Yes Fire extinguisher in home: Yes Carbon monox detector in home: Yes Firearms in home: No Do you feel safe at home: Yes Do you feel safe in your relationship?: Yes Victim of physical abuse: No Victim of emotional abuse: No Victim of sexual abuse: No Exam Const General: cooperative and no acute distress Orientation: alert, awake and oriented x3 HENMT Head: normal to inspection Face and sinus: normal facial exam Eyes General: appearance normal, both eyes and all related structures Pupils: PERRL EOM: EOM intact bilaterally Neck Neck: normal visual inspection and No submandibular swelling Lymphatic: no lymphadenopathy noted Chest Chest: normal inspection of the chest, normal palpation of entire chest wall and no tenderness Resp Effort & Inspection: normal respiratory effort and able to speak in complete sentences Auscultation: clear to auscultation bilaterally Cardio Rate: regular rate Rhythm: regular rhythm GI Inspection: normal to inspection Palpation: soft, not firm, not rigid and nontender Auscultation: normal bowel sounds Back/Spine/Pelvis Thoracic/Lumbar Spine: thoracic and lumbar spine normal to inspection Pelvis: no pain with anterior-posterior compression Skin General skin exam: no rashes or lesions noted Neuro General: patient alert, patient awake and patient oriented x3 Cognition: normal cognition Speech: speech normal Motor: muscle tone normal throughout Sensory Exam: no sensory deficits noted Extrem General: normal to inspection, full ROM, capillary refill normal, no calf tenderness bilaterally and no edema Psych Appearance: grossly normal Mental Status: mental status grossly normal Speech and Movement: speech and movement normal Affect: normal affect
[2022-03-02 20:36] LABS: Abs Immature Grans 0.01 10^3/uL (0.0-0.06); Absolute Basophil Count 0.04 10^3/uL (0.0-0.2); Absolute Eosinophil Count 0.08 10^3/uL (0.0-0.7); Absolute Lymphocyte Count 1.97 10^3/uL (1.2-3.4); Absolute Monocyte Count 0.44 10^3/uL (0.1-0.8); Absolute Neutrophil Count 2.14 10^3/uL (1.2-6.7); Basophils % 0.9; Eosinophils % 1.7; HCT 41.1 % (36.0-46.0); HGB 14.1 g/dL (11.2-15.7); Immature Grans % 0.2; Lymphocytes % 42.1; MCH 30.1 pg (27.0-33.0); MCHC 34.3 % (32.0-36.0); MCV 88 fL (80-95); MPV 8.5 fL (8.0-11.0); Monocytes % 9.4; Neutrophils % 45.7; Platelet Count 211 10^3/uL (130-400); RBC 4.68 10^6/uL (3.93-5.22); RDW 13.2 % (11.7-14.6); RDW-SD 42.6 fL; WBC 4.68 10^3/uL (4.4-10.8)
[2022-03-02 20:58] LABS: ALT 24 U/L (14-59); AST 14 U/L (15-37); Albumin 3.6 g/dL (3.4-5.0); Alkaline Phosphatase 104 U/L (46-116); Anion Gap 6.7 mmol/L (3-11); BUN 20 mg/dL (7-18); Bilirubin, Total 0.4 mg/dL (0.2-1.0); CO2 33.3 mmol/L (21.0-32.0); CREATININE 1.1 mg/dL (0.55-1.02); Calcium 9.3 mg/dL (8.5-10.1); Chloride 100 mmol/L (98-107); Estimated GFR 55.42 (mL/min/1.73m2); Glucose 238 mg/dL (74-106); Magnesium 2.2 mg/dL (1.8-2.4); Potassium 3.9 mmol/L (3.5-5.1); Sodium 140 mmol/L (136-145); Total Protein 6.8 g/dL (6.4-8.2); Troponin I < 50 ng/L (<or=60)
[2022-03-02] MEDS: Famotidine 20 MG/2 ML VIAL IVP (21:00)
--- NOTE | 2022-03-02 21:00 | DI.RAD_ITS ---
Exam(s) XR CHEST 2V PA LATERAL EXAM: XR CHEST 2V PA LATERAL CLINICAL HISTORY: chest pain, r/o acute disease TECHNIQUE: 2D digital imaging was performed of the chest. Two images were obtained. PA and lateral views were obtained. COMPARISON: CR CHEST 2 VIEWS PA,LAT from 08/26/2014 FINDINGS: MEDIASTINUM: Normal. HEART: Normal. PULMONARY VASCULATURE: Normal. LUNGS: No focal consolidating infiltrates. Stable scarring in the left lung base. PLEURAL SPACE: No pleural effusion or pneumothorax. BONE:Within normal limits for the patient's age. OTHER FINDINGS:Normal. IMPRESSION: No acute pulmonary findings. DATA REPOSITORY: RADIATION DOSE DELIVERED:
[2022-03-02] MEDS: Sucralfate 1 GM TAB PO (21:01)
[2022-03-02 21:05] LABS: Lipase 95 U/L (73-393)
[2022-03-02] MEDS: Normal Saline 250 ML IV (21:14)
--- NOTE | 2022-03-02 21:33 | DI.VRAD_ITS ---
PROCEDURE INFORMATION: Exam: XR Chest Exam date and time: 03/02/2022 9:27 PM Age: 67 years old Clinical indication: Sternal or substernal pain; Patient HX: Chest pain. R/O acute disease TECHNIQUE: Imaging protocol: Radiologic exam of the chest. Views: 2 views. COMPARISON: No relevant prior studies available. FINDINGS: Lungs: Mild chronic interstitial prominence. No consolidation. Pleural spaces: No pleural effusion. No pneumothorax. Heart/Mediastinum: Mildly tortuous aorta. No cardiomegaly. Bones/joints: Unremarkable. IMPRESSION: No acute findings. Dictated and Authenticated by: Naveen Harvey MD. Ordering:RITA Conrad MD
== END 2022-03-02 23:15 | disposition home or self-care (01) ==
PROVIDERS: Emergency Provider Physician Assistant; PCP Nurse Practitioner Family
DX: R07.89 Other chest pain (principal); I10 Essential (primary) hypertension; E11.9 Type 2 diabetes mellitus without complications; F17.210 Nicotine dependence, cigarettes, uncomplicated; Z79.84 Long term (current) use of oral hypoglycemic drugs; Z79.82 Long term (current) use of aspirin
CPT/HCPCS: 36415; 80053; 83690; 93005; 96361; 96374; 99284; 71046; 83735; 84484; 85025; 93010; 99285

== ENCOUNTER 2022-05-02 18:59 | Emergency (ER) | payer MEDICARE, MEDICAID, SELFPAY ==
--- NOTE | 2022-05-02 19:00 | RT.EKG_ITS ---
APPROVED REPORT Exam: Resting ECG Reason for Exam: chest pain Patient Location: E HR:104 bpm ECG Measurements Heart Rate 104 AXIS IL 161 P 65 QRSd 87 QRS 20 QT 349 T 49 QTc 460 Conclusion Sinus tachycardia...rate> 99 Low voltage, extremity leads...all extremity leads <0.5mV
[2022-05-02 19:05] VITALS: BP 159/73; PULSE 104; RESP 18; TEMP 35.6; O2SAT 97
--- NOTE | 2022-05-02 19:15 | DI.RAD_ITS ---
Exam(s) XR PORTABLE CHEST AP EXAM: XR PORTABLE CHEST AP CLINICAL HISTORY: chest pain TECHNIQUE: 2D digital imaging was performed. COMPARISON: CR,XR XR CHEST 2V PA LATERAL from 03/02/2022 FINDINGS: Leads overlie the chest. LUNGS: Clear. No pleural abnormality seen. HEART: Normal size. AORTA: Normal diameter. BONES: Unremarkable for age. Soft tissues: Unremarkable. IMPRESSION: No acute findings. DATA REPOSITORY: RADIATION DOSE DELIVERED:
[2022-05-02 19:40] LABS: Abs Immature Grans 0.01 10^3/uL (0.0-0.06); Absolute Basophil Count 0.04 10^3/uL (0.0-0.2); Absolute Eosinophil Count 0.14 10^3/uL (0.0-0.7); Absolute Lymphocyte Count 2.21 10^3/uL (1.2-3.4); Absolute Monocyte Count 0.35 10^3/uL (0.1-0.8); Absolute Neutrophil Count 2.97 10^3/uL (1.2-6.7); Basophils % 0.7; Eosinophils % 2.4; HGB 14.6 g/dL (11.2-15.7); Immature Grans % 0.2; Lymphocytes % 38.6; MCH 29.9 pg (27.0-33.0); MCHC 33.2 % (32.0-36.0); MCV 90 fL (80-95); MPV 8.7 fL (8.0-11.0); Monocytes % 6.1; Platelet Count 255 10^3/uL (130-400); RBC 4.89 10^6/uL (3.93-5.22); RDW 12.7 % (11.7-14.6); RDW-SD 42.1 fL; WBC 5.72 10^3/uL (4.4-10.8)
[2022-05-02 19:41] LABS: Source Nasal/Nares
--- NOTE | 2022-05-02 19:41 | ED.GENADUL_ITS ---
Discharge Plan Disposition Patient Disposition: Against Medical Advice Condition: Stable Discharge Details Clinical Impression: Chest pain Primary Care Provider: Cherri Kirkland ED Provider: Luisito Miles Home Meds and New Rx's Prescriptions: Continued fluticasone propionate 50 mcg/actuation spray,suspension 1 - 2 spray NS DAILY PRN (Reason: nasal congestion) Qty: 47.4 3RF atorvastatin [Lipitor] 40 mg tablet 40 mg PO DAILY Qty: 90 3RF glipizide 5 mg tablet extended release 24 hr 15 mg PO QAM Qty: 270 3RF Rx Instructions: Take 15 mg once daily with breakfast or first meal of the day (DME) lancets Misc See Rx Instructions .ROUTE .MEDSUPPLY Qty: 100 3RF Rx Instructions: As directed to check morning fasting blood glucose. No insulin. Dispense covered brand. (DME) Blood Glucose Test Strip See Rx Instructions .ROUTE .MEDSUPPLY Qty: 100 3RF Rx Instructions: As directed to check daily morning fasting blood glucose. No insulin. Dispense covered brand. magnesium oxide 400 mg (241.3 mg magnesium) tablet 400 mg PO BID Qty: 180 3RF metformin 1,000 mg tablet See Rx Instructions PO See Instructions MDD 2500 mg Qty: 225 3RF Dose Instruction: Take 1000 mg (1 pill) in the AM, 500 mg (1/2 pill) midday, & 1000 mg in the PM for a total daily dose of 2500 mg PO See Instructions; Take 1000 mg (1 pill) in the AM, 500 mg (1/2 pill) midday, & 1000 mg in the PM for a total daily dose of 2500 mg PO Rx Instructions: Take 1000 mg (1 pill) in the AM, 500 mg (1/2 pill) midday, & 1000 mg in the PM for a total daily dose of 2500 mg PO Jardiance 25 mg tablet 25 mg PO DAILY Qty: 90 3RF omeprazole 20 mg capsule,delayed release(DR/EC) 20 mg PO DAILY Qty: 90 1RF Rx Instructions: Take 20 mg once daily in the morning at least 30 minutes before first meal (DME) blood-glucose meter [[employer]Touch Ultra2 Meter] 1 EACH kit 1 ea Miscellaneous QID Qty: 1 Rx Instructions: New diagnosis of DM to check glucose 6 times daily for medication adjustment. aspirin 81 MG tablet,delayed release (DR/EC) 81 mg PO DAILY Qty: 90 (DME) compression socks, medium [Futuro Restoring Medium] 1 EACH misc 1 ea Miscellaneous DAILY Qty: 2 Rx Instructions: FOR VENOUS INSUFFICIENCY Please measure pt for appropriate size losartan 50 mg tablet 75 mg PO DAILY Qty: 135 3RF sucralfate [Carafate] 1 gram tablet 1 gm PO QACHS Qty: 14 0RF Discharge Instructions Instructions: Chest Pain (ED) Additional Instructions: At this time your laboratory values do not reveal any obvious emergent process however I have recommended that you stay for a repeat blood test, specifically the troponin. You have declined. You have capacity to make this decision and understand the risk, you have decided to leave AGAINST MEDICAL ADVICE. Please watch for new or worsening symptoms and return to the ER for any concerns. Lastly, contact your primary care provider tomorrow to discuss your ER visit, ongoing symptoms, and need for outpatient reevaluation. Discharge Data Discharge Date/Time-TO BE ENTERED AT DEPARTURE: 05/02/22 21:09 Medical Decision Making 67-year-old female, pathological history of hypertension, diabetes, GERD, current smoker, reports heartburn worse than usual over the past 2-3 days, worse after eating. Patient states that she has taken her omeprazole but feels as though she needs a higher dose potentially. She states that she had similar symptoms a few months back, was seen in the ER, given IV Shen medication and symptoms were greatly improved. Given her age and comorbidities, certainly will treat this as a chest pain equivalent and initiate a cardiac work-up including delta troponin. Given the burning sensation will obtain a D-dimer although low suspicion for PE and or dissection. Will give a GI cocktail and reassess. Elise faye reports that earlier today her pain seemed to be the worst, moderate, but now upon being at the ER it is a 1 or 2 out of 10. Patient reports that the GI cocktail helped but she would prefer the IV medications. Patient will be given IV famotidine and Protonix. Initial laboratory values are unremarkable for any obvious emergent process. No evidence of leukocytosis, thrombocytopenia, anemia. D-dimer 598, this is actually negative when age-adjusted. Potassium 3.7, creatinine 0.8 with a GFR of 81.21 glucose 205 LFTs unremarkable, troponin less than 50. COVID-negative. Chest x-ray unremarkable. Patient is now asymptomatic. We discussed her benign work-up thus far. She is requesting discharge. I explained to her that given her overall presentation I believe obtaining a delta troponin is prudent. She understands but declines. She has the capacity to do so. Patient states she feels as though this is heartburn and will talk with her PCP tomorrow regarding her symptoms as well as increasing her overall medications. Patient appears clinically sober, is of sound mind, and based upon my clinical examination has the capacity to make their own decisions. We have offered treatm ent options and discussed the the risks and benefits of these options and refusing these options, including and/or disability specific to the patient's pathology. Pt is able to discuss and understands the risks and benefits and alternatives of treatment and refusing treatment. The patient still chooses to leave before evaluation and treatment can be completed AGAINST MEDICAL ADVICE. Standard discharge and return precautions were provided. Patient understands, is agreeable to this plan, and has no additional questions or concerns upon discharge. This documentation was generated using [employer] system, please disregard any oddities of phrase or misspellings. Medical Records Medical records reviewed: Yes I reviewed the patient's medical records. Imaging Data Radiologic Study: Attestation: I personally reviewed and interpreted this imaging study as follows: Imaging: X-Ray Radiologist's impression: PROCEDURE INFORMATION: Exam: XR Chest Exam date and time: 05/02/2022 7:37 PM Age: 67 years old Clinical indication: Other: Chest pain TECHNIQUE: Imaging protocol: Radiologic exam of the chest. Views: 1 view. COMPARISON: CR XR CHEST 2V PA LATERAL 03/02/2022 9:27 PM FINDINGS: Lungs: Chronic interstitial prominence. No consolidation. Pleural spaces: No pleural effusion. No pneumothorax. Heart/Mediastinum: Mildly tortuous aorta. No cardiomegaly. Bones/ joints: Unremarkable. IMPRESSION: No acute findings. Lab Data Lab results reviewed: Yes I reviewed the patient's lab results. Labs: Laboratory Tests Range/Units 05/02/22 05/02/22 05/02/22 19:25 19:25 19:25 WBC (4.4-10.8) 10^3/uL 5.72 RBC (3.93-5.22) 10^6/uL 4.89 Hgb (11.2-15.7) g/dL 14.6 Hct (36.0-46.0) % 44.0 MCV (80-95) fL 90 MCH (27.0-33.0) pg 29.9 MCHC (32.0-36.0) % 33.2 RDW (11.7-14.6) % 12.7 Plt Count (130-400) 10^3/uL 255 MPV (8.0-11.0) fL 8.7 Immature Gran % 0.2 Neutrophils % 52.0 Lymphocytes % 38.6 Monocytes % 6.1 Eosinophils % 2.4 Basophils % 0.7 Nucleated RBC % (0.0-0.3) % 0.0 Absolute Neutrophils (1.2-6.7) 10^3/uL 2.97 Absolute Lymphocytes (1.2-3.4) 10^3/uL 2.21 Absolute Monocytes (0.1-0.8) 10^3/uL 0.35 Absolute Eosinophils (0.0-0.7) 10^3/uL 0.14 Absolute Basophils (0.0-0.2) 10^3/uL 0.04 PT (9.3-11.0) sec 10.1 INR (0.9-1.1) 1.0 APTT (21.0-27.5) sec 23.4 D-Dimer (<500) ng/mlFEU 598 H Sodium (136-145) mmol/L 145 Potassium (3.5-5.1) mmol/L 3.7 Chloride (98-107) mmol/L 103 Carbon Dioxide (21.0-32.0) mmol/L 33.0 H Anion Gap (3-11) mmol/L 9.0 BUN (7-18) mg/dL 17 Creatinine (0.55-1.02) mg/dL 0.8 Est GFR (CKD-EPI 2020) (mL/min/1.73m2) 81.21 Glucose (74-106) mg/dL 205 H Calcium (8.5-10.1) mg/dL 10.1 Magnesium (1.8-2.4) mg/dL 2.2 Total Bilirubin (0.2-1.0) mg/dL 0.5 AST (15-37) U/L 22 ALT (14-59) U/L 39 Alkaline Phosphatase (46-116) U/L 106 Troponin I (<or=60) ng/L < 50 Total Protein (6.4-8.2) g/dL 7.5 Albumin (3.4-5.0) g/dL 4.1 COVID-19 Source SARS-CoV-2 (PCR) (Negative) Range/Units 05/02/22 05/02/22 19:40 22:22 WBC (4.4-10.8) 10^3/uL RBC (3.93-5.22) 10^6/uL Hgb (11.2-15.7) g/dL Hct (36.0-46.0) % MCV (80-95) fL MCH (27.0-33.0) pg MCHC (32.0-36.0) % RDW (11.7-14.6) % Plt Count (130-400) 10^3/uL MPV (8.0-11.0) fL Immature Gran % Neutrophils % Lymphocytes % Monocytes % Eosinophils % Basophils % Nucleated RBC % (0.0-0.3) % Absolute Neutrophils (1.2-6.7) 10^3/uL Absolute Lymphocytes (1.2-3.4) 10^3/uL Absolute Monocytes (0.1-0.8) 10^3/uL Absolute Eosinophils (0.0-0.7) 10^3/uL Absolute Basophils (0.0-0.2) 10^3/uL PT (9.3-11.0) sec INR (0.9-1.1) APTT (21.0-27.5) sec D-Dimer (<500) ng/mlFEU Sodium (136-145) mmol/L Potassium (3.5-5.1) mmol/L Chloride (98-107) mmol/L Carbon Dioxide (21.0-32.0) mmol/L Anion Gap (3-11) mmol/L BUN (7-18) mg/dL Creatinine (0.55-1.02) mg/dL Est GFR (CKD-EPI 2020) (mL/min/1.73m2) Glucose (74-106) mg/dL Calcium (8.5-10.1) mg/dL Magnesium (1.8-2.4) mg/dL Total Bilirubin (0.2-1.0) mg/dL AST (15-37) U/L ALT (14-59) U/L Alkaline Phosphatase (46-116) U/L Troponin I (<or=60) ng/L Cancelled Total Protein (6.4-8.2) g/dL Albumin (3.4-5.0) g/dL COVID-19 Source Nasal/Nares SARS-CoV-2 (PCR) (Negative) Negative ECG Data Attestation: I personally reviewed and interpreted this ECG (s) as follows: Interpretation: Sinus tachycardia, ventricular of 104, no STEMI HPI General Mode of arrival: ambulatory . Date/Time Provider Initiated Documentation: 05/02/22 19:22 . Limitations to Documentation: no limitations . Information obtained by: patient . History of Present Illness 67 year old F presents to the emergency department with the chief complaint of heart burn, described as moderate, with intensity rated at 5. Quality is described as other (burning), and is localized to the chest. Patient reports no radiation. Patient started experiencing this day(s) (2-3) and it has been intermittent. No relieving factors improve symptom(s), Eating worsens symptoms . Patient notes no other symptoms.. Patient did receive the following treatments prior to arrival, Aspirin Related Data Home Medications Medication Instructions Recorded Confirmed blood-glucose meter (OneTouch #1 unit 08/15/14 03/18/22 Ultra2 Meter kit) aspirin 81 mg tablet,delayed 81 mg PO DAILY #90 tab-caps 10/09/14 03/18/22 release compression socks, medium (Futuro #2 ea 10/09/15 03/18/22 Restoring Medium) atorvastatin 40 mg tablet (Lipitor) 40 mg PO DAILY #90 tab-caps 08/06/21 03/18/22 blood sugar diagnostic (Blood #100 ea 08/06/21 03/18/22 Glucose Test strips) fluticasone propionate 50 1 - 2 spray NS DAILY PRN nasal 08/06/21 03/18/22 mcg/actuation nasal congestion #47.4 grams spray,suspension glipizide 5 mg tablet, extended 15 mg PO QAM #270 tab-caps 08/06/21 03/18/22 release 24 hr lancets #100 ea 08/06/21 03/18/22 empagliflozin 25 mg tablet 25 mg PO DAILY #90 tab-caps 02/04/22 03/18/22 (Jardiance) magnesium oxide 400 mg (241.3 mg 400 mg PO BID #180 tab-caps 02/04/22 03/18/22 magnesium) tablet metformin 1,000 mg tablet See Rx Instructions PO See 02/04/22 03/18/22 Instructions #225 tab-caps sucralfate 1 gram tablet (Carafate) 1 gm PO QACHS #14 tabs 03/02/22 03/18/22 omeprazole 20 mg capsule,delayed 20 mg PO DAILY #90 caps 03/18/22 03/18/22 release losartan 50 mg tablet 75 mg PO DAILY #135 tab-caps 04/21/22 Previous Rx's Medication Instructions Recorded atorvastatin 40 mg tablet (Lipitor) 40 mg PO DAILY #90 tab-caps 08/06/21 blood sugar diagnostic (Blood #100 ea 08/06/21 Glucose Test strips) fluticasone propionate 50 1 - 2 spray NS DAILY PRN nasal 08/06/21 mcg/actuation nasal congestion #47.4 grams spray,suspension glipizide 5 mg tablet, extended 15 mg PO QAM #270 tab-caps 08/06/21 release 24 hr lancets #100 ea 08/06/21 empagliflozin 25 mg tablet 25 mg PO DAILY #90 tab-caps 02/04/22 (Jardiance) magnesium oxide 400 mg (241.3 mg 400 mg PO BID #180 tab-caps 02/04/22 magnesium) tablet metformin 1,000 mg tablet See Rx Instructions PO See 02/04/22 Instructions #225 tab-caps sucralfate 1 gram tablet (Carafate) 1 gm PO QACHS #14 tabs 03/02/22 omeprazole 20 mg capsule,delayed 20 mg PO DAILY #90 caps 03/18/22 release losartan 50 mg tablet 75 mg PO DAILY #135 tab-caps 04/21/22 Allergies Allergy/AdvReac Type Severity Reaction Status Date / Time amlodipine AdvReac Intermediate leg Verified 03/18/22 10:48 swelling lisinopril AdvReac Intermediate Leg Verified 03/18/22 10:48 swelling metronidazole AdvReac Intermediate terrible Verified 03/18/22 10:48 burning sensation in chest General Stated Complaint: Chest Pain LIZETH: 3 Review of Systems Constitutional Constitutional: Denies fatigue, Denies headache(s) and Denies weakness Eyes Eyes: Denies change in vision ENT Ears, Nose, Mouth, and Throat: Denies headache(s) and Denies neck pain Cardiovascular Cardiovascular: Reports chest pain (heart burn) and Denies dyspnea Respiratory Respiratory: Denies cough and Denies dyspnea Gastrointestinal Gastrointestinal: Denies abdominal pain, Denies nausea and Denies vomiting Genitourinary Genitourinary: Denies dysuria Musculoskeletal Musculoskeletal: Denies back pain and Denies neck pain Integumentary/Breasts Skin/Breast: Denies rash Neurologic Neurologic: Denies headache(s) and Denies weakness Endocrine Endocrine: Denies fatigue Hematologic/Lymphatic Hematologic/Lymphatic: Denies easy bleeding and Denies easy bruising PFSH All Active Problems Chest pain (Acute) Nuclear sclerotic cataract (Acute 04/28/21) 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 edema (Acute 04/28/21) Hyperlipidemia, unspecified (Chronic) 06/2018 labs: lipid panel acceptable on high potency statin, continue Essential hypertension (Chronic) Type 2 diabetes mellitus with retinopathy (Chronic 01/21/16) Tobacco use disorder (Chronic 07/22/14) Presbyopia (Chronic 08/26/16) Mild nonproliferative diabetic retinopathy associated with type 2 diabetes mellitus (Chronic 10/09/15) B/L, also with mild hypertensive retinopathy B/L Microalbuminuria due to type 2 diabetes mellitus (Chronic 01/21/16) Immunization refused (Chronic 04/23/16) Hypomagnesemia (Chronic 04/23/16) Gastroesophageal reflux disease (Chronic 07/22/14) Atypical chest pain 2000 --> neg stress test --> GERD Bilateral lower extremity edema (Chronic) Longstanding, worse in summer, probable venous insufficiency Allergic rhinitis (Chronic 07/03/15) Medical History Colon polyp Last [facility]: 11/22/14 w/ Dr. Kameron Moore, tubulovillous adenoma, repeat 3 years TUCK[facility] (obstructive sleep apnea) Surgical History Adenoidectomy Colonoscopy - MAC (04/30/19) 2014- Tubullovillous adenoma Tonsillectomy UPPP (Uvulopalatopharyngoplasty) (07/22/92) Family History Mother Arthritis Asthma Father Arthritis Son Asthma Daughter Asthma Daughter Asthma Sister Diabetes Brother Diabetes Brother Diabetes Social History Smoking/Tobacco Use Status: Current every day Tobacco Type: cigarettes Smoking packs per day: 1 Smoking cigarettes per day: 20.0 Years smoked: 30 Smoking pack- years: 30.00 Tobacco: How many years used: 25 Quit status: has quit before (Has cut back some) Smoking risk assessment performed?: Yes Alcohol Intake: never Drug use: Never Substance use type: does not use Adopted: No Caregiver/Support person: No Foster care: No Household members: spouse Housing: house Number of Children: 3 number of grandchildren: 7 Communication Needs: None Education Level: high school Details: 11th grade 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 Pets and animals: Yes Pets and animals: dog(s) Sexually active: Yes Do you think of yourself as: straight/heterosexual Current gender identity: female What is your relationship status?: How often do you talk on the phone with friends or family?: three or more times per week How often do you get together with friends or relatives?: twice per week Do you belong to any clubs or organized social groups?: no Panel score (0-1 are the most socially isolated patients): 2 What type of physical activity do you participate in: none Special fortino needs: No Seatbelt use: always Helmet use: No Drive intox or ride w/intox oil transport driver: No Water heater temp set <120 deg: Yes Working smoke detector in home: Yes Fire extinguisher in home: Yes Carbon monox detector in home: Yes Firearms in home: No Do you feel safe at home: Yes Do you feel safe in your relationship?: Yes Victim of physical abuse: No Victim of emotional abuse: No Victim of sexual abuse: No Exam Const General: cooperative, healthy appearing, comfortable and no acute distress Orientation: alert, awake and oriented x3 HENMT Head: normal to inspection, normocephalic and atraumatic Face and sinus: normal facial exam Mouth: moist mucous membranes Throat: posterior oropharynx normal Eyes Conjunctivae: conjunctivae normal Neck Neck: normal visual inspection, full ROM, no meningeal signs, trachea midline and supple Chest Chest: normal inspection of the chest and normal palpation of entire chest wall Resp Effort & Inspection: normal respiratory effort and able to speak in complete sentences Auscultation: clear to auscultation bilaterally Cardio Rate: regular rate Rhythm: regular rhythm GI Inspection: normal to inspection Palpation: soft, not firm, no guarding, no pulsatile masses and nontender Auscultation: normal bowel sounds Back/Spine/Pelvis Back: no CVA tenderness and No back tenderness Skin General skin exam: no rashes or lesions noted Neuro General: patient alert, patient awake, moves all extremities and no focal motor deficits Cognition: normal cognition Speech: speech normal Gait: normal gait Motor: muscle tone normal throughout Sensory Exam: no sensory deficits noted Extrem General: normal to inspection, full ROM, capillary refill normal, no calf tenderness and pedal edema bilaterally pitting and 1+ (Baseline per patient) Psych Appearance: grossly normal Mental Status: mental status grossly normal Course Vital Signs Vital signs: Vital Signs Temperature 35.6 C L 05/02/22 19:05 Pulse 104 H 05/02/22 19:05 Respiratory Rate 18 05/02/22 19:05 Blood Pressure 159/73 H 05/02/22 19:05 Pulse Oximetry 97 05/02/22 19:05 Temperature 35.6 C L 05/02/22 19:05 Temperature Source Tympanic 05/02/22 19:05 Pulse 104 H 05/02/22 19:05 Respiratory Rate 18 05/02/22 19:05 Blood Pressure 159/73 H 05/02/22 19:05 Blood Pressure Position Sitting 05/02/22 19:05 Pulse Oximetry 97 05/02/22 19:05 Oxygen Delivery Method Room Air 05/02/22 19:05 Oxygen Flow Rate 0 05/02/22 19:05 Pain Level 4 05/02/22 19:05
[2022-05-02 19:42] VITALS: RESP 18
[2022-05-02] MEDS: Aspirin 81 MG CHEW 324 MG CH (19:46)
[2022-05-02] MEDS: Mylanta Suspension 30 ML CUP (19:47)
[2022-05-02 19:57] LABS: PTT Activated 23.4 sec (21.0-27.5); Prothrombin Time 10.1 sec (9.3-11.0)
[2022-05-02 19:58] LABS: ALT 39 U/L (14-59); AST 22 U/L (15-37); Albumin 4.1 g/dL (3.4-5.0); Alkaline Phosphatase 106 U/L (46-116); BUN 17 mg/dL (7-18); Bilirubin, Total 0.5 mg/dL (0.2-1.0); CREATININE 0.8 mg/dL (0.55-1.02); Calcium 10.1 mg/dL (8.5-10.1); Chloride 103 mmol/L (98-107); Estimated GFR 81.21 (mL/min/1.73m2); Glucose 205 mg/dL (74-106); Magnesium 2.2 mg/dL (1.8-2.4); Potassium 3.7 mmol/L (3.5-5.1); Sodium 145 mmol/L (136-145); Total Protein 7.5 g/dL (6.4-8.2); Troponin I < 50 ng/L (<or=60)
--- NOTE | 2022-05-02 20:06 | DI.VRAD_ITS ---
PROCEDURE INFORMATION: Exam: XR Chest Exam date and time: 05/02/2022 7:37 PM Age: 67 years old Clinical indication: Other: Chest pain TECHNIQUE: Imaging protocol: Radiologic exam of the chest. Views: 1 view. COMPARISON: CR XR CHEST 2V PA LATERAL 03/02/2022 9:27 PM FINDINGS: Lungs: Chronic interstitial prominence. No consolidation. Pleural spaces: No pleural effusion. No pneumothorax. Heart/Mediastinum: Mildly tortuous aorta. No cardiomegaly. Bones/joints: Unremarkable. IMPRESSION: No acute findings. Dictated and Authenticated by: Naveen Harvey MD. Ordering:WAI Jorge MD
[2022-05-02 20:12] LABS: D-Dimer 598 ng/mlFEU (<500)
[2022-05-02 20:19] LABS: COVID-19 PCR Negative (Negative)
[2022-05-02] MEDS: Pantoprazole 40 MG VIAL IVP (20:45)
[2022-05-02] MEDS: Famotidine 20 MG/2 ML VIAL IVP (20:45)
[2022-05-02 20:55] VITALS: BP 114/79; PULSE 87; RESP 18; TEMP 36.8; O2SAT 98
--- NOTE | 2022-05-02 21:08 | NUR.NOTE ---
Pt leaving AMA. Risks discussed with her by PA. All required paperwork signed. Pt ambulated off unit without difficulty.
== END 2022-05-02 21:09 | disposition left against medical advice (07) ==
PROVIDERS: Emergency Provider Physician Assistant; PCP Nurse Practitioner Family
DX: R07.9 Chest pain, unspecified (principal); I10 Essential (primary) hypertension; E11.9 Type 2 diabetes mellitus without complications; Z79.84 Long term (current) use of oral hypoglycemic drugs; Z79.82 Long term (current) use of aspirin; Z20.822 Contact with and (suspected) exposure to COVID-19
CPT/HCPCS: 80053; 87635; 93005; 96374; 96375; 99284; 71045; 83735; 84484; 85025; 85379; 85610; 85730; 93010; 99285

== ENCOUNTER 2022-05-05 14:41 | Emergency (ER) | payer MEDICARE, MEDICAID, SELFPAY ==
--- NOTE | 2022-05-05 14:45 | RT.EKG_ITS ---
APPROVED REPORT Exam: Resting ECG Reason for Exam: chest pain Patient Location: E HR:95 bpm ECG Measurements Heart Rate 95 AXIS AR 153 P 54 QRSd 85 QRS 5 QT 351 T 36 QTc 440 Conclusion Sinus rhythm...normal P axis, V-rate 60- 99 Physician: no stemi
[2022-05-05 14:46] VITALS: BP 153/90; PULSE 104; RESP 18; TEMP 36.9; O2SAT 100
--- NOTE | 2022-05-05 15:28 | ED.GENADUL_ITS ---
Discharge Plan Disposition Patient Disposition: Home Condition: Stable Discharge Details Clinical Impression: Gastroesophageal reflux disease, Gastritis Primary Care Provider: Cherri Kirkland ED Provider: Kiara Ta Home Meds and New Rx's Prescriptions: New lidocaine HCl [Lidocaine Viscous] 2 % solution 15 ml mucous membrane BID PRN (Reason: Gerd) 5 Days Qty: 100 0RF Rx Instructions: Take by mouth up to 2 times daily as needed for severe reflux symptoms. Do not take longer than 5 days. You may mix this with Maalox as needed. Continued fluticasone propionate 50 mcg/actuation spray,suspension 1 - 2 spray NS DAILY PRN (Reason: nasal congestion) Qty: 47.4 3RF atorvastatin [Lipitor] 40 mg tablet 40 mg PO DAILY Qty: 90 3RF glipizide 5 mg tablet extended release 24 hr 15 mg PO QAM Qty: 270 3RF Rx Instructions: Take 15 mg once daily with breakfast or first meal of the day (DME) lancets Misc See Rx Instructions .ROUTE .MEDSUPPLY Qty: 100 3RF Rx Instructions: As directed to check morning fasting blood glucose. No insulin. Dispense covered brand. (DME) Blood Glucose Test Strip See Rx Instructions .ROUTE .MEDSUPPLY Qty: 100 3RF Rx Instructions: As directed to check daily morning fasting blood glucose. No insulin. Dispense covered brand. magnesium oxide 400 mg (241.3 mg magnesium) tablet 400 mg PO BID Qty: 180 3RF metformin 1,000 mg tablet See Rx Instructions PO See Instructions MDD 2500 mg Qty: 225 3RF Dose Instruction: Take 1000 mg (1 pill) in the AM, 500 mg (1/2 pill) midday, & 1000 mg in the PM for a total daily dose of 2500 mg PO See Instructions; Take 1000 mg (1 pill) in the AM, 500 mg (1/2 pill) midday, & 1000 mg in the PM for a total daily dose of 2500 mg PO Rx Instructions: Take 1000 mg (1 pill) in the AM, 500 mg (1/2 pill) midday, & 1000 mg in the PM for a total daily dose of 2500 mg PO Jardiance 25 mg tablet 25 mg PO DAILY Qty: 90 3RF sucralfate [Carafate] 1 gram tablet 1 g PO QACHS Qty: 30 0RF omeprazole 20 mg capsule,delayed release(DR/EC) 40 mg PO DAILY Qty: 90 1RF Rx Instructions: Take 20 mg once daily in the morning at least 30 minutes before first meal (DME) blood-glucose meter [LoveLive.TVuch Ultra2 Meter] 1 EACH kit 1 ea Miscellaneous QID Qty: 1 Rx Instructions: New diagnosis of DM to check glucose 6 times daily for medication adjustment. aspirin 81 MG tablet,delayed release (DR/EC) 81 mg PO DAILY Qty: 90 Hold Instructions: Home Medication placed on hold at Doctor's office (DME) compression socks, medium [Futuro Restoring Medium] 1 EACH misc 1 ea Miscellaneous DAILY Qty: 2 Rx Instructions: FOR VENOUS INSUFFICIENCY Please measure pt for appropriate size losartan 50 mg tablet 75 mg PO DAILY Qty: 135 3RF Discharge Instructions Instructions: Gastritis (ED), GERD (Gastroesophageal Reflux Disease) (ED) Additional Instructions: An outpatient order for stool to include H. pylori which is a bacterial infection is ordered. Please collect the stool at home and bring in at your earliest convenience. If you are unable to bring the stool in right away please keep it on ice or in the refrigerator. Follow up with primary care provider in 3-5 days. Return to ED sooner if any worsening pain not relieved by medications, radiation of the pain into your back or arm, sweaty feeling, nausea vomiting or fever or concerns. Increase oral fluids. Practice a brat diet stay away from anything fried spicy fatty or dairy. Also stay away from anything acidic. Please take your previously prescribed medications. Please keep your scheduled appointment with general surgery. Referrals: Cherri Kirkland NP [Primary Care Provider] - 2 weeks Discharge Data Discharge Date/Time-TO BE ENTERED AT DEPARTURE: 05/05/22 16:47 Medical Decision Making 67-year-old female with a past medical history of hyperlipidemia, hypertension, type 2 diabetes, tobacco use disorder, GERD, obstructive sleep apnea presents to the ER chief complaint of midsternal burning which has been on and off for the last few days. Patient was seen here on Tuesday for same, had a cardiac work-up which was negative. She also was seen on the , 48 hours ago at her PCPs office who increased her dose of omeprazole and gave her referral to general surgery EKG was reviewed by Dr. Guilherme Dickerson MD ER attending, old EKG available for review no significant change no STEMI noted. At this time I do not feel it is necessary to repeat the cardiac work-up as patient's symptoms have not changed and she is pain-free upon arrival. She denies any radiation of the pain, nausea or diaphoresis no arm pain or jaw pain. EKG is within normal limits. We will order an outpatient stool study to include H. pylori and encourage patient to keep a general surgery appointment on Tuesday as previously scheduled. We will give a GI cocktail here and 1 to go. Discussed plan of care and follow-up with patient she verbalizes understanding and is in agreement with the plan. This text was generated using [employer]upaMobile[employer] system, please disregard any oddities of phrase or misspellings. Medical Records Medical records reviewed: Yes I reviewed the patient's medical records. Lab Data Lab results reviewed: Yes I reviewed the patient's lab results. Lab results narrative: Labs from [facility] General Mode of arrival: ambulatory . Date/Time Provider Initiated Documentation: 05/05/22 15:16 . Limitations to Documentation: no limitations . Information obtained by: patient, RN notes reviewed and old records reviewed . HPI Narrative: 67-year-old female with a past medical history of hyperlipidemia, hypertension, type 2 diabetes, tobacco use disorder, GERD, obstructive sleep apnea presents to the ER chief complaint of midsternal burning which has been on and off for the last few days. Patient was seen here on Tuesday for same, had a cardiac work-up which was negative. She also was seen on the , 48 hours ago at her PCPs office who increased her dose of omeprazole and gave her referral to general surgery. She also reports small amount of diarrhea. Denies radiation of pain, no nausea, no diaphoresis. Patient is pain-free upon arrival. She did take Carafate just prior to arrival. She has an appointment on Tuesday with general surgery. Related Data Home Medications Medication Instructions Recorded Confirmed blood-glucose meter (OneTouch #1 unit 08/15/14 05/03/22 Ultra2 Meter kit) aspirin 81 mg tablet,delayed 81 mg PO DAILY #90 tab-caps 10/09/14 05/03/22 release compression socks, medium (Futuro #2 ea 10/09/15 05/03/22 Restoring Medium) atorvastatin 40 mg tablet (Lipitor) 40 mg PO DAILY #90 tab-caps 08/06/21 05/03/22 blood sugar diagnostic (Blood #100 ea 08/06/21 05/03/22 Glucose Test strips) fluticasone propionate 50 1 - 2 spray NS DAILY PRN nasal 08/06/21 05/03/22 mcg/actuation nasal congestion #47.4 grams spray,suspension glipizide 5 mg tablet, extended 15 mg PO QAM #270 tab-caps 08/06/21 05/03/22 release 24 hr lancets #100 ea 08/06/21 05/03/22 empagliflozin 25 mg tablet 25 mg PO DAILY #90 tab-caps 02/04/22 05/03/22 (Jardiance) magnesium oxide 400 mg (241.3 mg 400 mg PO BID #180 tab-caps 02/04/22 05/03/22 magnesium) tablet metformin 1,000 mg tablet See Rx Instructions PO See 02/04/22 05/03/22 Instructions #225 tab-caps losartan 50 mg tablet 75 mg PO DAILY #135 tab-caps 04/21/22 05/03/22 omeprazole 20 mg capsule,delayed 40 mg PO DAILY #90 caps 05/03/22 05/03/22 release sucralfate 1 gram tablet (Carafate) 1 g PO QACHS #30 tabs 05/03/22 05/03/22 lidocaine HCl 2 % mucosal solution 15 ml mucous membrane BID PRN Gerd 05/05/22 (Lidocaine Viscous) 5 days #100 mL Previous Rx's Medication Instructions Recorded atorvastatin 40 mg tablet (Lipitor) 40 mg PO DAILY #90 tab-caps 08/06/21 blood sugar diagnostic (Blood #100 ea 08/06/21 Glucose Test strips) fluticasone propionate 50 1 - 2 spray NS DAILY PRN nasal 08/06/21 mcg/actuation nasal congestion #47.4 grams spray,suspension glipizide 5 mg tablet, extended 15 mg PO QAM #270 tab-caps 08/06/21 release 24 hr lancets #100 ea 08/06/21 empagliflozin 25 mg tablet 25 mg PO DAILY #90 tab-caps 02/04/22 (Jardiance) magnesium oxide 400 mg (241.3 mg 400 mg PO BID #180 tab-caps 02/04/22 magnesium) tablet metformin 1,000 mg tablet See Rx Instructions PO See 10/27/22 Instructions #225 tab-caps losartan 50 mg tablet 75 mg PO DAILY #135 tab-caps 04/21/22 omeprazole 20 mg capsule,delayed 40 mg PO DAILY #90 caps 05/03/22 release sucralfate 1 gram tablet (Carafate) 1 g PO QACHS #30 tabs 05/03/22 lidocaine HCl 2 % mucosal solution 15 ml mucous membrane BID PRN Gerd 05/05/22 (Lidocaine Viscous) 5 days #100 mL Allergies Allergy/AdvReac Type Severity Reaction Status Date / Time amlodipine AdvReac Intermediate leg Verified 05/03/22 14:36 swelling lisinopril AdvReac Intermediate Leg Verified 05/03/22 14:36 swelling metronidazole AdvReac Intermediate terrible Verified 05/03/22 14:36 burning sensation in chest General Stated Complaint: GenMedical LIZETH: 3 Review of Systems All systems reviewed & are unremarkable except as noted in HPI and below Cardiovascular Cardiovascular: Denies diaphoresis, Denies syncope, Denies rapid heart rate, Denies leg edema, Denies radiating jaw, neck or arm pain and Denies dyspnea Respiratory Respiratory: Denies dyspnea Gastrointestinal Gastrointestinal: Reports as per HPI, Denies melena, Denies bloating, Reports dyspepsia, Reports heartburn, Reports diarrhea and Denies hematemesis Neurologic Neurologic: Denies syncope PFSH All Active Problems (Updated 05/05/22 @ 15:44 by Kiara Ta NP) Gastritis (Acute) Chest pain (Acute) Nuclear sclerotic cataract (Acute 04/28/21) 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 edema (Acute 04/28/21) Hyperlipidemia, unspecified (Chronic) 06/2018 labs: lipid panel acceptable on high potency statin, continue Essential hypertension (Chronic) Type 2 diabetes mellitus with retinopathy (Chronic 01/21/16) Tobacco use disorder (Chronic 07/22/14) Presbyopia (Chronic 08/26/16) Mild nonproliferative diabetic retinopathy associated with type 2 diabetes mellitus (Chronic 10/09/15) B/L, also with mild hypertensive retinopathy B/L Microalbuminuria due to type 2 diabetes mellitus (Chronic 01/21/16) Immunization refused (Chronic 04/23/16) Hypomagnesemia (Chronic 04/23/16) Gastroesophageal reflux disease (Chronic 07/22/14) Atypical chest pain 2000 --> neg stress test --> GERD Bilateral lower extremity edema (Chronic) Longstanding, worse in summer, probable venous insufficiency Allergic rhinitis (Chronic 07/03/15) Medical History (Updated 05/05/22 @ 15:44 by Kiara Ta NP) Colon polyp Last [place]: 11/22/14 w/ Dr. Kameron Moore, tubulovillous adenoma, repeat 3 years [facility] (obstructive sleep apnea) Surgical History Adenoidectomy Colonoscopy - MAC (04/30/19) 2015- Tubullovillous adenoma Tonsillectomy UPPP (Uvulopalatopharyngoplasty) (07/22/92) Family History Mother Arthritis Asthma Father Arthritis Son Asthma Daughter Asthma Daughter Asthma Sister Diabetes Brother Diabetes Brother Diabetes Social History Smoking/Tobacco Use Status: Current every day Tobacco Type: cigarettes Smoking packs per day: 1 Smoking cigarettes per day: 20.0 Years smoked: 30 Smoking pack- years: 30.00 Tobacco: How many years used: 25 Quit status: has quit before (Has cut back some) Smoking risk assessment performed?: Yes Alcohol Intake: never Drug use: Never Substance use type: does not use Adopted: No Caregiver/Support person: No Foster care: No Household members: spouse Housing: house Number of Children: 3 number of grandchildren: 7 Communication Needs: None Education Level: high school Details: 11th grade 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 Pets and animals: Yes Pets and animals: dog(s) Sexually active: Yes Do you think of yourself as: straight/heterosexual Current gender identity: female What is your relationship status?: How often do you talk on the phone with friends or family?: three or more times per week How often do you get together with friends or relatives?: twice per week Do you belong to any clubs or organized social groups?: no Panel score (0-1 are the most socially isolated patients): 2 What type of physical activity do you participate in: none Special fortino needs: No Seatbelt use: always Helmet use: No Drive intox or ride w/intox driver material handler: No Water heater temp set <120 deg: Yes Working smoke detector in home: Yes Fire extinguisher in home: Yes Carbon monox detector in home: Yes Firearms in home: No Do you feel safe at home: Yes Do you feel safe in your relationship?: Yes Victim of physical abuse: No Victim of emotional abuse: No Victim of sexual abuse: No Exam Narrative Exam Narrative: Constitutional: Alert and oriented x3. Appears stated age. Normal body habitus. Head: Normocephalic, no trauma. Eyes: Pupils PERRL, Red reflex noted, EOM's intact. Eyelids symmetrical without lesions, discharge, or swelling. ENT: Bilateral TM's WNL, External ear normal to inspection, no mastoid TTP, swelling, or erythema, Nasal turbinates WNL, no nasal discharge. Normal dentition, Posterior pharynx WNL, no exudate. Chest: RRR, Normal S1, S2, distal pulses intact. Resp: Lungs clear to auscultation bilaterally, no wheezes, rales, or rhonchi. Abdomen: Soft, non-distended, Normoactive bowel sounds all 4 quads. Musculoskeletal: Normal gait, 5/5 strength to all four extremities. Skin: No suspicious rashes or lesions. Capillary refill less than 2 sec. Neurologic: Cranial nerves II-XII intact. Alert and oriented x 3. Motor: No deficits noted. Sensory: Intact bilaterally all 4 extremities. Reflexes: DTR's intact bilaterally.. Hematologic/Lymphatic: No ecchymosis, no lymphadenopathy. Course Vital Signs Vital signs: Vital Signs Temperature 36.9 C 05/05/22 14:46 Pulse 104 H 05/05/22 14:46 Respiratory Rate 18 05/05/22 14:46 Blood Pressure 153/90 H 05/05/22 14:46 Pulse Oximetry 100 05/05/22 14:46 Temperature 36.9 C 05/05/22 14:46 Temperature Source Tympanic 05/05/22 14:46 Pulse 104 H 05/05/22 14:46 Respiratory Rate 18 05/05/22 14:46 Respiratory Effort 05/05/22 14:52 Blood Pressure 153/90 H 05/05/22 14:46 Pulse Oximetry 100 05/05/22 14:46 Pain Level 5 05/05/22 14:46
[2022-05-05] MEDS: Mylanta Suspension 30 ML CUP PO (15:55)
[2022-05-05] MEDS: Lidocaine 2% Viscous 1 ML Solution 15 ML PO (15:55)
[2022-05-05 16:26] VITALS: RESP 15
== END 2022-05-05 16:47 | disposition home or self-care (01) ==
PROVIDERS: Emergency Provider Registered Nurse Emergency; PCP Nurse Practitioner Family
DX: K21.9 Gastro-esophageal reflux disease without esophagitis (principal); K29.70 Gastritis, unspecified, without bleeding; I10 Essential (primary) hypertension; E11.9 Type 2 diabetes mellitus without complications; Z79.82 Long term (current) use of aspirin; Z79.84 Long term (current) use of oral hypoglycemic drugs
CPT/HCPCS: 93005; 99283; 93010; 99282

== ENCOUNTER 2022-05-06 14:13 | Outpatient (REF) | payer MEDICARE, MEDICAID, SELFPAY ==
[2022-05-07 10:56] LABS: Campylobacter PCR Negative (Negative); Salmonella PCR Negative (Negative); Shiga Toxin PCR Negative (Negative); Shigella/Enteroinvasive Ecoli Negative (Negative)
[2022-05-10 13:34] LABS: Helicobacter pylori Ag, Feces Negative (Negative)
== END 2022-05-06 14:14 | disposition home or self-care (01) ==
LOC: LBN 14:13
PROVIDERS: PCP Nurse Practitioner Family; Visit Provider Registered Nurse Emergency
DX: K21.9 Gastro-esophageal reflux disease without esophagitis (principal); R19.7 Diarrhea, unspecified
CPT/HCPCS: 87329; 87338; 87505; 83630; 87177

== ENCOUNTER → 2022-05-10 10:39 | Outpatient (BNVA) | payer MEDICARE, MEDICAID, SELFPAY | PROVIDERS: PCP Nurse Practitioner Family; Referring Provider Nurse Practitioner Family; Visit Provider Surgery | DX: K21.9 Gastro-esophageal reflux disease without esophagitis (principal); K29.70 Gastritis, unspecified, without bleeding; K63.5 Polyp of colon; E11.3313 Type 2 diabetes mellitus with moderate nonproliferative diabetic retinopathy with macular edema, bilateral; E11.29 Type 2 diabetes mellitus with other diabetic kidney complication; I10 Essential (primary) hypertension; F17.210 Nicotine dependence, cigarettes, uncomplicated | CPT/HCPCS: 99215; 99243 ==

== ENCOUNTER 2022-05-27 06:07 | Day surgery (SDC) | payer MEDICARE, MEDICAID, SELFPAY ==
--- NOTE | 2022-05-26 20:42 | W.PM.DSUDISC ---
Date of service: 05/27/22 Time of Service: 09:27 Discharge Plan Disposition Patient Disposition: Home Condition: Good Discharge Details Reason For Visit: EGD and colonoscopy Attending Provider: Timothy Abdullahi Primary Care Provider: Cherri Kirkland Home Meds and New Rx's Prescriptions: Continued fluticasone propionate 50 mcg/actuation spray,suspension 1 - 2 spray NS DAILY PRN (Reason: nasal congestion) Qty: 47.4 3RF atorvastatin [Lipitor] 40 mg tablet 40 mg PO DAILY Qty: 90 3RF glipizide 5 mg tablet extended release 24 hr 15 mg PO QAM Qty: 270 3RF Rx Instructions: Take 15 mg once daily with breakfast or first meal of the day (DME) lancets Misc See Rx Instructions .ROUTE .MEDSUPPLY Qty: 100 3RF Rx Instructions: As directed to check morning fasting blood glucose. No insulin. Dispense covered brand. (DME) Blood Glucose Test Strip See Rx Instructions .ROUTE .MEDSUPPLY Qty: 100 3RF Rx Instructions: As directed to check daily morning fasting blood glucose. No insulin. Dispense covered brand. magnesium oxide 400 mg (241.3 mg magnesium) tablet 400 mg PO BID Qty: 180 3RF metformin 1,000 mg tablet See Rx Instructions PO See Instructions MDD 2500 mg Qty: 225 3RF Dose Instruction: Take 1000 mg (1 pill) in the AM, 500 mg (1/2 pill) midday, & 1000 mg in the PM for a total daily dose of 2500 mg PO See Instructions; Take 1000 mg (1 pill) in the AM, 500 mg (1/2 pill) midday, & 1000 mg in the PM for a total daily dose of 2500 mg PO Rx Instructions: Take 1000 mg (1 pill) in the AM, 500 mg (1/2 pill) midday, & 1000 mg in the PM for a total daily dose of 2500 mg PO Jardiance 25 mg tablet 25 mg PO DAILY Qty: 90 3RF omeprazole 20 mg capsule,delayed release(DR/EC) 20 mg PO BID Qty: 180 1RF Rx Instructions: Take 20 mg twice daily in the morning at least 30 minutes before meals (DME) blood-glucose meter [Xcedexuch Ultra2 Meter] 1 EACH kit 1 ea Miscellaneous QID Qty: 1 Rx Instructions: New diagnosis of DM to check glucose 6 times daily for medication adjustment. aspirin 81 MG tablet,delayed release (DR/EC) 81 mg PO DAILY Qty: 90 Hold Instructions: Home Medication placed on hold at Doctor's office (DME) compression socks, medium [Futuro Restoring Medium] 1 EACH misc 1 ea Miscellaneous DAILY Qty: 2 Rx Instructions: FOR VENOUS INSUFFICIENCY Please measure pt for appropriate size losartan 50 mg tablet 75 mg PO DAILY Qty: 135 3RF sucralfate [Carafate] 1 gram tablet 1 g PO QACHS Qty: 30 0RF Discontinued polyethylene glycol 3350 17 gram/dose powder 238 g PO ONCE Qty: 238 0RF Rx Instructions: take per colonoscopy instructions bisacodyl [Dulcolax (bisacodyl)] 5 mg tablet,delayed release (DR/EC) 5 mg PO ONCE Qty: 8 0RF Rx Instructions: take per colonoscopy instructions Discharge Instructions Instructions: Gastritis (GEN), Gilmore Esophagus (GEN), Colorectal Polyps (GEN) Additional Instructions: Jenise, we were able to complete your upper endoscopy today without much difficulty. You have some changes in the lower part of your esophagus consistent with Gilmore's esophagus. This typically results from reflux of stomach contents up into the lower esophagus. It is typically treated with the proton pump inhibitor type medications (like omeprazole). You will most likely need another upper endoscopy in the next few years, but that decision can be made once the pathology results from these recent biopsies are completed. You also have a hiatal hernia. This may be contributing to some of the symptoms that you described. There is an operation to fix this, but it is a fairly involved operation, that we do not typically do here at [facility]. It might be worth discussing that with Dr. Alcala during your follow-up. You also have some reflux of bile into your stomach. Sucralfate should help with this. We were also able to complete your colonoscopy all the way to your cecum. I did find one rectal polyp that I removed completely. We will be in touch when we have the results of that pathology report. As we talked about before the procedure, I performed multiple biopsies of your large intestine (as well as your stomach) during the course of the endoscopies. 1. If tolerated, consume a soft, low fiber diet for 1-2 days. 2[address] Do not drive, drink alcohol, operate machinery, make critical decisions, or do activities that require coordination or balance for 24 hours. 3. Because air was put into your colon during the procedure, expelling air from your rectum (passing gas or farting) is normal. 4. You may not have a bowel movement for 1-3 days because of the colonoscopy prep. This is normal. 5. You may experience a sore throat for 24 to 48 hours. You may use throat lozenges or gargle with warm salt water to relieve the discomfort. 6. Because air was put into your stomach during the procedure, you may experience some belching. 7. Go directly to the emergency room if you notice any of the following: Develop chills (warm to touch), or if you have a thermometer and your temperature is above 101 Difficulty breathing or difficultly swallowing Persistent vomiting Severe abdominal pain, other than gas cramps Severe chest pain Black, tarry stools Any bleeding ? exceeding one tablespoon 8. Call your physician if the site where your intravenous was started becomes red, swollen, painful, and warm to touch. 9. Your physician has reviewed your pre-procedure medications. Please continue to take those medications as previously ordered. You will be given specific information/education regarding any changes to your medications before leaving. Referrals: Linda Alcala, [OSTEOPATHIC DOCTOR] - (2-3 weeks to review results) Activity:: Activity as Tolerated Diet:: As Tolerated Discharge Orders Discharge Orders: Discharge Order (Routine); Ordered 05/26/22 Ordered By: Timothy Abdullahi DS: Diagnosis Discharge Diagnosis (1) Gastritis: Status: Acute Asessment and Plan: Follow-up on pathology reports
--- NOTE | 2022-05-26 20:45 | ENDO_ITS ---
Date of service: 05/27/22 Time of Service: 09:10 Endoscopy Report DATE OF PROCEDURE: 05/27/22 PRE-OP DIAGNOSIS: Gastritis and screening colonoscopy POST-OP DIAGNOSIS: other (Bile reflux gastritis, hiatal hernia, Gilmore's esophagus; rectal polyp) PROCEDURE: EGD and colonoscopy SURGEON: Timothy Abdullahi ANESTHESIA TYPE: General:No Airway ESTIMATED BLOOD LOSS: 20 PATHOLOGY: other (Biopsies of duodenum, gastric antrum, greater curvature, GE junction, lower esophagus; rectal polyp, random biopsies of cecum, ascending, transverse and descending colons) COMPLICATIONS: None DISPOSITION: same day INDICATIONS: Mary Anne is a 67 year od woman with severe gastritis and GERD. PREP: Miralax/Dulcolax PROCEDURE START TIME: 08:35 PROCEDURE END TIME: 09:10 COLONOSCOPY RETRACTION TIME: 16 FINDINGS: Hiatal hernia with bile reflux gastritis and signs of Gilmore's esophagus. Rectal polyp PROCEDURE DESCRIPTION: After the initiation of monitored anesthetic care, and with the assistance of a bite block, I advanced a standard gastroscope through the mouth past the hypopharynx and into the esophagus.? Under the direct vision of the scope, I advanced down the esophagus into the stomach.? Once I entered the stomach, I performed a brief inspection, followed by retroflexion towards the gastric cardia.? There was a hiatal hernia. Appeared to be sliding in nature.? After that, I gently advanced the scope around the incisura angularis and examined the pylorus.? There was some bile pooled in the prepyloric region.? Next, I advanced the scope through the pylorus into the duodenum.? The mucosa was a little pale, but otherwise healthy appearing.? There were no abnormalities.? I was able to visualize bile draining into the duodenum through the ampulla Vater. ?I perform random biopsies of the duodenum. Next, I began retracting the endoscope.? I brought the scope back into the stomach and perform biopsies of the gastric antrum, and the greater curvature. I then gently desufflated some of the stomach, and withdrew the endoscope into the distal esophagus. The true GE junction appeared to be at 39 cm, and there were some changes consistent with Gilmore's esophagus extending to about 35 cm, but this was quite difficult to measure because of the sliding nature of her hiatal hernia. I did perform biopsies of the GE junction as well as the distal esophagus.. ?Finally, I withdrew the scope along the length of the esophagus taking great care to examine the entirety of the mucosa.? I did not appreciate any abnormalities. We then moved Mary Anne into the left lateral decubitus position. I began by performing an external anorectal exam.? Perineum and skin were normal, as was the anal verge.? There was no evidence of external hemorrhoids.? Next, I performed a digital rectal exam.? I did not appreciate any abnormal findings.? Next, I advanced a colonoscope into the rectal vault.? I performed retroflexion.? There was an internal hemorrhoid.? Using insufflation, I then advanced the colonoscope beyond the rectal folds and into the sigmoid colon before advancing towards the cecum.? The quality of the prep was poor.? The scope was noted to be in the cecum by identification of the ileocecal valve and appendiceal orifice.? I then began withdrawing the colonoscope using repeated irrigation as necessary for full evaluation of the colonic mucosa. ?I performed random biopsies of the cecum, ascending, transverse, and descending colons. The specimens were sent together. Once the scope was withdrawn to the level of the rectum, great care was taken to examine portions of the rectal folds.? There was a single rectal polyp. It was less than 0.5 cm and it was sessile in nature. I removed them with cold forceps polypectomy. There was minimal bleeding. Finally, the scope was withdrawn and the patient was brought to the same-day [facility] recovery unit as the anesthetic wore off. ?The findings and instructions were shared with the patient prior to discharge.
[2022-05-27 06:15] VITALS: BP 132/76; PULSE 94; RESP 18; TEMP 36.3; O2SAT 99
[2022-05-27] MEDS: Lactated Ringers 1,000 ML 80 ML IV (06:40)
--- NOTE | 2022-05-27 07:23 | W.ANESPRE ---
General Info Date of Service Date Performed: 05/27/22 Height: 5 ft 1.5 in Weight: 70.5 kg Body Mass Index (BMI): 28.8 Surgical Procedure: Operation Date: 05/27/22 08:35 Proposed Procedure Side Surgeon p Colonoscopy/Gastroscopy w/Biopsies Timothy Abdullahi MD Meds Allergies and Home Medications Allergies Allergy/AdvReac Type Severity Reaction Status Date / Time amlodipine AdvReac Intermediate leg Verified 05/27/22 06:26 swelling lisinopril AdvReac Intermediate Leg Verified 05/27/22 06:26 swelling metronidazole AdvReac Intermediate terrible Verified 05/27/22 06:26 burning sensation in chest Home Medication Medication Instructions Recorded blood-glucose meter ([employer] #1 unit 08/15/14 Ultra2 Meter kit) aspirin 81 mg tablet,delayed 81 mg PO DAILY #90 tab-caps 10/09/14 release compression socks, medium (Futuro #2 ea 10/09/15 Restoring Medium) atorvastatin 40 mg tablet (Lipitor) 40 mg PO DAILY #90 tab-caps 08/06/21 blood sugar diagnostic (Blood #100 ea 08/06/21 Glucose Test strips) fluticasone propionate 50 1 - 2 spray NS DAILY PRN nasal 08/06/21 mcg/actuation nasal congestion #47.4 grams spray,suspension glipizide 5 mg tablet, extended 15 mg PO QAM #270 tab-caps 08/06/21 release 24 hr lancets #100 ea 08/06/21 empagliflozin 25 mg tablet 25 mg PO DAILY #90 tab-caps 02/04/22 (Jardiance) magnesium oxide 400 mg (241.3 mg 400 mg PO BID #180 tab-caps 02/04/22 magnesium) tablet metformin 1,000 mg tablet See Rx Instructions PO See 02/04/22 Instructions #225 tab-caps losartan 50 mg tablet 75 mg PO DAILY #135 tab-caps 04/21/22 omeprazole 20 mg capsule,delayed 20 mg PO BID #180 caps 05/07/22 release sucralfate 1 gram tablet (Carafate) 1 g PO QACHS #30 tabs 05/20/22 Current Visit Medications: Current Medications Generic Name Dose Route Start Last Admin Trade Name Freq PRN Reason Stop Dose Admin Hyoscyamine Sulfate 0.125 mg 05/26/22 20:46 Hyoscyamine 0.125 Mg Sl/Oral/Chew SL DIRECTED PRN Ringer's Solution 1,000 mls @ 80 mls/hr 05/27/22 06:00 05/27/22 06:40 IV 05/27/22 23:59 80 mls/hr INFUSION GILMA Administration IV Miscellaneous Supplies 1 each 05/27/22 06:00 Iv Access IV 05/27/22 23:59 DIRECTED GILMA Ondansetron HCl 4 mg 05/26/22 20:46 Ondansetron 4 Mg/2 Ml Vial IVP Q4H PRN PRN Nausea / Vomiting Sodium Chloride 0 ml 05/27/22 06:00 Normal Saline Flush 10 Ml Syr IV 05/27/22 23:59 PRN PRN Sodium Chloride 0 ml 05/27/22 06:00 Normal Saline 10 Ml Vial IJ 05/27/22 23:59 DIRECTED PRN Sterile Water 0 ml 05/27/22 06:00 Water,Injection,Sterile 10 Ml Vial IJ 05/27/22 23:59 DIRECTED PRN PFSH Active Problems Active Problems: Problem Status Onset Code Gastritis K29.70 Chest pain R07.9 Nuclear sclerotic cataract 04/28/21 H25.10 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 edema 04/28/21 E11.3313 Hyperlipidemia, unspecified E78.5 Essential hypertension I10 Type 2 diabetes mellitus with retinopathy 01/21/16 E11.319 Tobacco use disorder 07/22/14 F17.200 Presbyopia 08/26/16 H52.4 Mild nonproliferative diabetic retinopathy associated with type 2 diabetes mellitus 10/09/15 E11.3299 Microalbuminuria due to type 2 diabetes mellitus 01/21/16 E11.29, R80.9 Immunization refused 04/23/16 Z28.21 Hypomagnesemia 04/23/16 E83.42 Gastroesophageal reflux disease 07/22/14 K21.9 Bilateral lower extremity edema R60.0 Allergic rhinitis 07/03/15 J30.9 Medical History Medical History Colon polyp Last [place]: 11/22/14 w/ Dr. Kameron Moore, tubulovillous adenoma, repeat 3 years [facility] (obstructive sleep apnea) Surgical History Surgical History Adenoidectomy Colonoscopy - MAC (04/30/19) 2015- Tubullovillous adenoma Tonsillectomy UPPP (Uvulopalatopharyngoplasty) (07/22/92) Tobacco Smoking/Tobacco Use Status: Current every day Tobacco Type: cigarettes Smoking packs per day: 1 Smoking cigarettes per day: 20.0 Years smoked: 30 Smoking pack-years: 30.00 Alcohol Alcohol Intake: never Substance Use Substance use: Never Substance use type: does not use Vital Signs and Lab Results Vital Signs Most Recent Vital Signs in EMR: Most Recent Vital Signs Temp Pulse Resp BP Pulse Ox 36.3 C L 94 H 18 132/76 99 05/27/22 06:15 05/27/22 06:15 05/27/22 06:15 05/27/22 06:15 05/27/22 06:15 Lab Results Blood Type / Crossmatch: No Data to Display Complete Blood Count: White Blood Count 5.72 10^3/uL (4.4-10.8) 05/02/22 19:25 Red Blood Count 4.89 10^6/uL (3.93-5.22) 05/02/22 19:25 Hemoglobin 14.6 g/dL (11.2-15.7) 05/02/22 19:25 Hematocrit 44.0 % (36.0-46.0) 05/02/22 19:25 Platelet Count 255 10^3/uL (130-400) 05/02/22 19:25 Complete Metabolic Panel: Sodium 145 mmol/L (136-145) 05/02/22 19:25 Potassium 3.7 mmol/L (3.5-5.1) 05/02/22 19:25 Chloride 103 mmol/L (98-107) 05/02/22 19:25 Carbon Dioxide 33.0 mmol/L (21.0-32.0) H 05/02/22 19:25 BUN 17 mg/dL (7-18) 05/02/22 19:25 Creatinine 0.8 mg/dL (0.55-1.02) 05/02/22 19:25 Est GFR (CKD-EPI 2020) 81.21 (mL/min/1.73m2) 05/02/22 19:25 Magnesium 2.2 mg/dL (1.8-2.4) 05/02/22 19:25 Calcium 10.1 mg/dL (8.5-10.1) 05/02/22 19:25 Albumin 4.1 g/dL (3.4-5.0) 05/02/22 19:25 Glucose 205 mg/dL (74-106) H 05/02/22 19:25 Liver Function Panel: Alanine Aminotransferase (ALT/SGPT) 39 U/L (14-59) 05/02/22 19:25 Aspartate Amino Transf (AST/SGOT) 22 U/L (15-37) 05/02/22 19:25 Coagulation Panel: INR International Normalized Ratio 1.0 (0.9-1.1) 05/02/22 19:25 Prothrombin Time 10.1 sec (9.3-11.0) 05/02/22 19:25 Activated Partial Thromboplast Time 23.4 sec (21.0-27.5) 05/02/22 19:25 D-Dimer 598 ng/mlFEU (<500) H 05/02/22 19:25 Cardiac Panel: Troponin I < 50 ng/L (<or=60) 05/02/22 Arterial Blood Gas: No Data to Display Venous Blood Gas: No Data to Display Pancreas Panel: No Data to Display Thyroid Panel: No Data to Display Infectious Disease: Coronavirus (COVID-19)(PCR) Negative (Negative) 05/02/22 19:40 Coronavirus 2019 Source Nasal/Nares 05/02/22 19:40 Blood Cultures: No Data to Display Toxicology Panel: No Data to Display Imaging and Studies Imaging and Studies Study information below may be from another EMR and interpreted by another provider. Please see original notes in EMR for more complete details. EKG Summary: 05/03 Conclusion Sinus rhythm...normal P axis, V-rate 60- 99 Physician: no stemi Anesthesia Assessment and Plan Anesthesia History Personal History: No History of Anesthesia Complications Family History: No Family History of Anesthesia Complications Exercise Tolerance Exercise Tolerance: Metabolic Equivalents>4 Pertinent Negatives Pertinent Negatives: No Major Cardiovascular Symptoms or Complaints Cardiac & Pulmonary Exam Cardiac Exam: Normal S1/S2 Heart Sounds Pulmonary Exam: Clear Bilateral Breath Sounds Implantable Cardiac Device Does patient have a Pacemaker or an ICD?: No Airway Exam Known Difficult Airway: No Mallampati Class: 2 Mouth Opening: Normal (> 3cm) Thyromental Distance: Greater than 3 cm Neck Range of Motion: Full ROM Neck Circumference: Normal Teeth Condition: Normal Dentition ASA Classification ASA Score: ASA 2 Emergency Case?: No NPO Status NPO Status: NPO Clears >2 hours, Solids >8 hours Anesthesia Plan Resuscitation Status: Full Code Anesthesia Technique: General Anesthesia Airway Planned: Natural Airway Monitors Used: Standard Monitors
[2022-05-27 07:29] VITALS: BMI 28.8
--- NOTE | 2022-05-27 08:35 | BOWEL_PTH ---
PATIENT: Mary Anne Hutson LOC: [facility] U#:[id number] AGE/SX: 67/F ROOM: RE05/27/[address]: Timothy Abdullahi MD : [id number] BED: DIS: 05/27/2022 SPEC #: [id number] RECD: 05/27/22 12:52 STATUS: DANIELLE RE #: [id number] AFSHIN: 05/27/22 08:[address]: Timothy Abdullhai DEPT: Surgical Specimen RECD BY: Lilly Kim ENTERED: 05/27/22 12:54 SP TYPE: Bowel OTHR DR: Cherri Kirkland APRN Tissues: 1 - BIOPSY BOWEL 2 - STOMACH BIOPSY 3 - STOMACH BIOPSY 4 - ESOPHAGUS BIOPSY 5 - ESOPHAGUS BIOPSY 6 - BIOPSY BOWEL 7 - BIOPSY BOWEL Procedures: GROSS AND MICRO LEVEL 4 Comments: [id number]
[2022-05-27 09:20] VITALS: BP 128/80; PULSE 84; RESP 16; TEMP 36.4; O2SAT 96
--- NOTE | 2022-05-27 09:41 | W.ANESPOSTOP ---
Postoperative Evaluation Date, Time and Location Date Performed: 05/27/22 Time Performed: 09:05 Patient Location: Day Surgery Unit Vital Signs Most Recent Imported Vital Signs: Most Recent Vital Signs Temp Pulse Resp BP Pulse Ox 36.4 C L 84 16 128/80 96 05/27/22 09:20 05/27/22 09:20 05/27/22 09:20 05/27/22 09:20 05/27/22 09:20 Pain Score Most Recent Pain Score: Most Recent Pain Score Pain Level 0 05/27/22 09:20 Assessment Mental Status: Awake (Alert & Oriented to Patient Baseline) Airway and Respiratory Function: Patent airway with normal (patient baseline) respiratory exam Cardiovascular Function: Hemodynamically Stable Hydration Status: Adequately Hydrated Nausea & Vomiting: No Nausea or Vomiting Pain: Pt. Denies Any Pain Peripheral Nerve Block: Patient did not receive a nerve block
[2022-05-27 09:50] VITALS: BP 136/78; PULSE 85; RESP 16; TEMP 36.4; O2SAT 99
[2022-05-27 10:15] VITALS: BP 133/89; PULSE 66; RESP 18; TEMP 36.4; O2SAT 98
== END 2022-05-27 10:08 | disposition home or self-care (01) ==
PROVIDERS: PCP Nurse Practitioner Family; Visit Provider Surgery
PROC: (CPT 45380; principal; 2022-05-27 08:30)
DX: K29.70 Gastritis, unspecified, without bleeding (principal); Z12.11 Encounter for screening for malignant neoplasm of colon; K44.9 Diaphragmatic hernia without obstruction or gangrene; K22.70 Barrett's esophagus without dysplasia; K62.1 Rectal polyp; K31.89 Other diseases of stomach and duodenum; K22.89 Other specified disease of esophagus
CPT/HCPCS: 45380; 43239; 88305

== ENCOUNTER 2022-08-12 01:36 | Outpatient (CLI) | payer MEDICARE, MEDICAID, SELFPAY ==
[2022-08-12 07:53] LABS: Abs Immature Grans 0.01 10^3/uL (0.0-0.06); Absolute Basophil Count 0.08 10^3/uL (0.0-0.2); Absolute Eosinophil Count 0.37 10^3/uL (0.0-0.7); Absolute Lymphocyte Count 2.85 10^3/uL (1.2-3.4); Absolute Monocyte Count 0.39 10^3/uL (0.1-0.8); Absolute Neutrophil Count 3.09 10^3/uL (1.2-6.7); Basophils % 1.2; Eosinophils % 5.4; HGB 14.9 g/dL (11.2-15.7); Immature Grans % 0.1; MCHC 33.1 % (32.0-36.0); MCV 91 fL (80-95); MPV 8.4 fL (8.0-11.0); Monocytes % 5.7; Neutrophils % 45.6; Platelet Count 263 10^3/uL (130-400); RBC 4.97 10^6/uL (3.93-5.22); RDW 12.9 % (11.7-14.6); RDW-SD 42.2 fL; WBC 6.79 10^3/uL (4.4-10.8)
[2022-08-12 08:13] LABS: COMMENT (LAB VIEW ONLY) 24.27 mg/dL; Microalb ug/mg Crea 6.6 ug/mg Cr
[2022-08-12 08:16] LABS: ALT 37 U/L (14-59); AST 16 U/L (15-37); Albumin 3.8 g/dL (3.4-5.0); Alkaline Phosphatase 95 U/L (46-116); Anion Gap 8.4 mmol/L (3-11); BUN 18 mg/dL (7-18); Bilirubin, Total 0.3 mg/dL (0.2-1.0); CO2 28.6 mmol/L (21.0-32.0); CREATININE 0.9 mg/dL (0.55-1.02); Calcium 9.6 mg/dL (8.5-10.1); Calculated LDL 73 mg/dL (<100); Chloride 104 mmol/L (98-107); Cholesterol 140 mg/dL (<200); Estimated GFR 70.51 (mL/min/1.73m2); Glucose 135 mg/dL (74-106); HDL Cholesterol 51 mg/dL (40-60); Magnesium 2.3 mg/dL (1.8-2.4); Potassium 4.2 mmol/L (3.5-5.1); Sodium 141 mmol/L (136-145); Total Protein 7.4 g/dL (6.4-8.2); Triglyceride 80 mg/dL (<150)
[2022-08-12 08:21] LABS: Hemoglobin A1C 7.7 % (<5.7)
== END 2022-08-12 01:37 | disposition home or self-care (01) ==
LOC: LBO 01:36
PROVIDERS: PCP Nurse Practitioner Family; Visit Provider Nurse Practitioner Family
DX: I10 Essential (primary) hypertension (principal); E78.5 Hyperlipidemia, unspecified; E11.9 Type 2 diabetes mellitus without complications; E83.42 Hypomagnesemia
CPT/HCPCS: 36415; 80053; 80061; 82043; 82570; 83036; 83735; 85025

== ENCOUNTER → 2022-12-16 11:07 | Outpatient (BNVA) | payer MEDICARE, MEDICAID, SELFPAY | PROVIDERS: PCP Nurse Practitioner Family; Referring Provider Nurse Practitioner Family; Visit Provider Surgery | DX: R09.89 Other specified symptoms and signs involving the circulatory and respiratory systems (principal) | CPT/HCPCS: 93922 ==

== ENCOUNTER 2023-12-13 04:40 | Outpatient (CLI) | payer MEDICARE, MEDICAID, SELFPAY ==
[2023-12-13 08:47] LABS: ALT 26 U/L (14-59); AST 16 U/L (15-37); Albumin 3.7 g/dL (3.4-5.0); Alkaline Phosphatase 99 U/L (46-116); Anion Gap 10.6 mmol/L (3-11); BUN 14 mg/dL (7-18); Bilirubin, Total 0.37 mg/dL (0.2-1.0); CO2 25.4 mmol/L (21.0-32.0); CREATININE 0.9 mg/dL (0.55-1.02); Calcium 9.8 mg/dL (8.5-10.1); Calculated LDL 69 mg/dL (<100); Chloride 106 mmol/L (98-107); Cholesterol 144 mg/dL (<200); Estimated GFR 70.07 (mL/min/1.73m2); Glucose 127 mg/dL (74-106); HDL Cholesterol 55 mg/dL (40-60); Potassium 4.5 mmol/L (3.5-5.1); Sodium 142 mmol/L (136-145); Total Protein 7.3 g/dL (6.4-8.2); Triglyceride 101 mg/dL (<150)
== END 2023-12-13 04:41 | disposition home or self-care (01) ==
LOC: LBO 04:40
PROVIDERS: PCP Nurse Practitioner; Visit Provider Nurse Practitioner
DX: E78.5 Hyperlipidemia, unspecified (principal); I10 Essential (primary) hypertension; E11.319 Type 2 diabetes mellitus with unspecified diabetic retinopathy without macular edema
CPT/HCPCS: 36415; 80053; 80061

== ENCOUNTER 2024-11-24 22:55 | Emergency (ER) | payer MEDICARE, MEDICAID, SELFPAY ==
--- NOTE | 2024-11-24 22:45 | RT.EKG_ITS ---
APPROVED REPORT Exam: Resting ECG Reason for Exam: CP Patient Location: E HR:108 bpm ECG Measurements Heart Rate 108 AXIS OR 210 P 81 QRSd 96 QRS 63 QT 323 T 156 QTc 433 Conclusion Sinus tachycardia...rate> 99 Borderline prolonged OR interval...OR >207, V-rate 91-120 Repol abnrm suggests ischemia, diffuse leads...ST-T neg, ant/lat/inf ST depressions concerning for posterior WI; posterior EKG requested
[2024-11-24 23:00] VITALS: PULSE 110; RESP 22
--- NOTE | 2024-11-24 23:00 | RT.EKG_ITS ---
APPROVED REPORT Exam: Resting ECG Reason for Exam: Posterior Patient Location: E HR:107 bpm ECG Measurements Heart Rate 107 AXIS HI 71 P 0 QRSd 102 QRS 59 QT 296 T 167 QTc 394 Conclusion Sinus tachycardia...rate> 99 Low voltage, precordial leads...precordial leads <1.0mV Repol abnrm suggests ischemia, diffuse leads...ST-T neg, ant/lat/inf POSTERIOR EKG V7/V8/V9 not diagnostic of occlusive VA
--- NOTE | 2024-11-24 23:00 | RT.EKG_ITS ---
APPROVED REPORT Exam: Resting ECG Reason for Exam: chest pain Patient Location: E HR:104 bpm ECG Measurements Heart Rate 104 AXIS MD 166 P 76 QRSd 93 QRS 50 QT 361 T 98 QTc 476 Conclusion Sinus tachycardia...rate> 99 Low voltage, precordial leads...precordial leads <1.0mV Nonspecific repol abnormality, diffuse leads...ST dep, T flat/neg, ant/lat/inf Post-nitro ST changes improved from prior 2301
[2024-11-24] MEDS: nitroGLYcerin 0.4 MG TAB SL ×2 (23:25→23:35)
[2024-11-24 23:28] LABS: Abs Immature Grans 0.02 10^3/uL (0.0-0.06); HCT 36.0 % (36.0-46.0); HGB 12.1 g/dL (11.2-15.7); Immature Grans % 0.3 %; MCH 28.7 pg (27.0-33.0); MCHC 33.6 % (32.0-36.0); MCV 85 fL (80-95); MPV 8.8 fL (8.0-11.0); Platelet Count 245 10^3/uL (130-400); RBC 4.22 10^6/uL (3.93-5.22); RDW 14.6 % (11.7-14.6); RDW-SD 45.3 fL; WBC 8.00 10^3/uL (4.4-10.8)
--- NOTE | 2024-11-24 23:28 | ED.GENADUL_ITS ---
Discharge Plan Disposition Patient Disposition: Transfer-Acute Inpatient Care Specific Acute Inpt Facility: [facility] Condition: Critical Discharge Details Clinical Impression: Myocardial infarct, Acute myocardial infarction Primary Care Provider: Cheri Ochoa ED Provider: Arline Huffman Home Meds and New Rx's Prescriptions: No Action fluticasone propionate 50 mcg/actuation spray,suspension 1 - 2 spray NS DAILY PRN (Reason: nasal congestion) Qty: 47.4 3RF (DME) lancets Misc See Rx Instructions .ROUTE .MEDSUPPLY Qty: 100 3RF Rx Instructions: As directed to check morning fasting blood glucose. No insulin. Dispense covered brand. (DME) Blood Glucose Test Strip See Rx Instructions .ROUTE .MEDSUPPLY Qty: 100 3RF Rx Instructions: As directed to check daily morning fasting blood glucose. No insulin. Dispense covered brand. famotidine 20 mg tablet See Rx Instructions .ROUTE .COMPLEX Qty: 90 3RF Dose Instruction: TAKE ONE TABLET BY MOUTH EVERY DAY NEEDED FOR UNCONTROLLED HEARTBURN +ADD ON TO OMEPRAZOLE+ Rx Instructions: TAKE ONE TABLET BY MOUTH EVERY DAY NEEDED FOR UNCONTROLLED HEARTBURN +ADD ON TO OMEPRAZOLE+ atorvastatin [Lipitor] 40 mg tablet 40 mg PO DAILY Qty: 90 3RF metformin 1,000 mg tablet See Rx Instructions .ROUTE .COMPLEX Dose Instruction: TAKE ONE TABLET BY MOUTH EVERY MORNING; ONE-HALF TABLET BY MOUTH MIDDAY; AND ONE TABLET BY MOUTH IN THE AFTERNOON Rx Instructions: take one tab bid Trulicity 1.5 mg/0.5 mL pen injector See Rx Instructions .ROUTE .COMPLEX Qty: 2 3RF Dose Instruction: INJECT 1.5MG UNDER THE SKIN ONCE WEEKLY Rx Instructions: INJECT 1.5MG UNDER THE SKIN ONCE WEEKLY magnesium oxide 400 mg (241.3 mg magnesium) tablet 400 mg PO BID Qty: 180 3RF sitagliptin phosphate 50 mg tablet 50 mg PO DAILY MDD 50 mg Qty: 90 3RF Rx Instructions: 1/2 tab for a week, then 1 tab daily. (DME) blood-glucose meter [[employer] Ultra2 Meter] 1 EACH kit 1 ea Miscellaneous QID Qty: 1 Rx Instructions: New diagnosis of DM to check glucose 6 times daily for medication adjustment. aspirin 81 MG tablet,delayed release (DR/EC) 81 mg PO DAILY Qty: 90 (DME) compression socks, medium [Futuro Restoring Medium] 1 EACH misc 1 ea Miscellaneous DAILY Qty: 2 Rx Instructions: FOR VENOUS INSUFFICIENCY Please measure pt for appropriate size losartan 50 mg tablet See Rx Instructions .ROUTE .COMPLEX Qty: 135 3RF Dose Instruction: TAKE ONE AND ONE-HALF TABLETS BY MOUTH EVERY DAY Rx Instructions: TAKE ONE AND ONE-HALF TABLETS BY MOUTH EVERY DAY glipizide 5 mg tablet extended release 24hr See Rx Instructions .ROUTE .COMPLEX Qty: 270 3RF Dose Instruction: TAKE 3 TABLETS BY MOUTH EVERY MORNING WITH BREAKFAST OR FIRST MEAL OF THE DAY Rx Instructions: TAKE 3 TABLETS BY MOUTH EVERY MORNING WITH BREAKFAST OR FIRST MEAL OF THE DAY omeprazole 20 mg capsule,delayed release(DR/EC) See Rx Instructions .ROUTE .COMPLEX Qty: 180 3RF Dose Instruction: TAKE ONE CAPSULE BY MOUTH TWICE A DAY AT LEAST 30 MIN BEFORE MEALS Rx Instructions: TAKE ONE CAPSULE BY MOUTH TWICE A DAY AT LEAST 30 MIN BEFORE MEALS HPI General Mode of arrival: ambulatory . Date/Time Provider Initiated Documentation: 11/24/24 22:59 . Limitations to Documentation: no limitations . Information obtained by: patient and family . HPI Narrative: 69yo F hx HTN, HLD, DM, smoker, GERD, no prior cardiac disease, presenting for chest pain intermittent x 2 days constant for the past two hours. Dull substernal burning, 8/10 prior to coming to the ED currently 5/10. She attributes this pain to reflux. No shortness of breath or lightheadedness. Similar pain in the past also attirbuted to reflux but has never been this bad. Nothing seems to make the pain better or worse. Otherwise in her usual state of health with no fevers, chills,rash, nasuea, vomiting, numbness, tingling, weakness, or other concerns. No recent surgery, illness, head injury, no hx GI bleed. Related Data Home Medications ?Medication ?Instructions ?Recorded ?Confirmed blood-glucose meter (OneTouch #1 unit 08/15/14 5 Ultra2 Meter kit) aspirin 81 mg tablet,delayed 81 mg PO DAILY #90 tab-ca ps 10/09/14 11/24/24 release compression socks, medium (Futuro #2 ea 10/09/1511/24 Restoring Medium) blood sugar diagnostic (Blood #100 ea 08/06/21 5 Glucose Test strips) fluticasone propionate 50 1 - 2 spray NS DAILY PRN kathleen al 08/06/21 11/24/24 mcg/actuation nasal congestion #47.4 grams spray,suspension lancets #100 ea 08/06/21 11/24/24 magnesium oxide 400 mg (241.3 mg 400 mg PO BID #180 ta b-caps 02/15/24 11/24/24 magnesium) tablet sitagliptin phosphate 50 mg tablet 50 mg PO DAILY #90 tabs 02/15/24 11/24/24 losartan 50 mg tablet See Rx Instructions .Route 0 04/24/24 11/24/24 .COMPLEX #135 tabs glipizide 5 mg tablet, extended See Rx Instructions .R oute 06/12/24 11/24/24 release 24 hr .COMPLEX #270 tabs atorvastatin 40 mg tablet (Lipitor) 40 mg PO DAILY #90 tab-caps 08/23/24 11/24/24 famotidine 20 mg tablet See Rx Instructions .Route 0 08/23/24 11/24/24 .COMPLEX #90 tabs metformin 1,000 mg tablet See Rx Instructions .Route . COMPLEX 08/23/24 11/24/24 omeprazole 20 mg capsule,delayed See Rx Instructions . Route 10/08/24 11/24/24 release .COMPLEX #180 caps dulaglutide 1.5 mg/0.5 mL See Rx Instructions .Route 0 11/22/24 11/24/24 subcutaneous pen injector .COMPLEX #2 mL (Trulicity) Previous Rx's ?Medication ?Instructions ?Recorded blood sugar diagnostic (Blood #100 ea 08/06/21 Glucose Test strips) fluticasone propionate 50 1 - 2 spray NS DAILY PRN kathleen al 08/06/21 mcg/actuation nasal congestion #47.4 grams spray,suspension lancets #100 ea 08/06/21 magnesium oxide 400 mg (241.3 mg 400 mg PO BID #180 ta b-caps 02/15/24 magnesium) tablet sitagliptin phosphate 50 mg tablet 50 mg PO DAILY #90 tabs 02/15/24 losartan 50 mg tablet See Rx Instructions .Route 0 04/24/24 .COMPLEX #135 tabs glipizide 5 mg tablet, extended See Rx Instructions .R oute 06/12/24 release 24 hr .COMPLEX #270 tabs atorvastatin 40 mg tablet (Lipitor) 40 mg PO DAILY #90 tab-caps 08/23/24 famotidine 20 mg tablet See Rx Instructions .Route 0 08/23/24 .COMPLEX #90 tabs omeprazole 20 mg capsule,delayed See Rx Instructions . Route 10/08/24 release .COMPLEX #180 caps dulaglutide 1.5 mg/0.5 mL See Rx Instructions .Route 0 11/22/24 subcutaneous pen injector .COMPLEX #2 mL (Trulicity) Allergies Allergy/AdvReac Type Severity Reaction Status Date / Time amlodipine AdvReac Intermediate leg Verified 11/22/24 12:53 swelling lisinopril AdvReac Intermediate Leg Verified 11/22/24 12:53 swelling metronidazole AdvReac Intermediate terrible Verified 11/22/24 12:53 burning sensation in chest General Stated Complaint: Chest Pain LIZETH: 2 Review of Systems Narrative: see HPI Exam Narrative Exam Narrative: General: Alert, anxious Head: Normocephalic, atraumatic Neck: Trachea midline, ?Neck supple. ENT: ?MMM.? Cardiac: ?Tachycardiac, regular,, no murmurs appreciated. Equal radial pulses. Resp: No respiratory distress. CTAB. Abd: ?Soft, non-distended, nontender Extremities: ?No deformities.? No peripheral edema. Neurologic: GCS 15. ? Moves all extremities freely against gravity. Sensation intact to light touch and symmetric bilateral upper extremities. 5/5 strength symmetric bilateral UE. Course Vital Signs Vital signs: Vital Signs Pulse 110 H 11/24/24 23:00 Respiratory Rate 22 11/24/24 23:00 Pulse 110 H 11/24/24 23:00 Respiratory Rate 22 11/24/24 23:00 Respiratory Effort Normal 11/24/24 23:09 Respiratory Depth Normal 11/24/24 23:09 Respiratory Pattern Normal 11/24/24 23:09 Oxygen Delivery Method Room Air 11/24/24 23:00 Oxygen Flow Rate 0 11/24/24 23:00 Pain Level 3 11/24/24 23:00 Comment Burning Chest pain 11/24/24 23:00 Medical Decision Making 69yo F hx HTN, HLD, DM, smoker, GERD, no prior cardiac disease, presenting for chest pain intermittent x 2 days constant for the past two hours. Dull substernal burning, 11/18 prior to coming to the ED currently 5/10. HR 110's, vital signs otherwise reassuring. EKG shows ischemic changes including ST depr essions concerning for posterior GA. Posterior EKG performed and does not show >0.5mm elevations in V7-V9 so not diagnostic of occlusive GA. No hard CI for lytics. She took 81 of ASA prior to arrival, will give additional here to compelte dose of 325. Given 0.4 of SL nitro with improvement in pain to 1/10; repeat EKG much improved. Given additional SL NQ with resolution of chest pain. Strongly suspect myocardial infarction. Pain not abrupt onset and no ripping/tearing pain or back pain to suggest aortic dissection and pt with equal radial pulses and no differential in SBP between arms and no hypertension here. Aortic dissection unlikely, would not workup further. Awaiting labs and CXR. [facility] cardiology contacted. Spoke with Dr. Santos from cardiology; reviewed EKGs and agree not occlusive GA, patient accepted under Dr. Grant. Labs resulted during phone call and discussed with Dr. Santos including troponin of 377. Will start heparin gtt and give ticragelor. [facility] to call back when bed ready. -Labs reviewed as below, CBC reassuring with no leukocytosis or anemia, CMP with no actionable abnormalities, Mg normal, lipase mildly elevated, coags normal, initial trop 377, BNP elevated at 2705 suggestive of possible heart failure, dimer ~900 negative by YEARS criteria (would not further pursue pulmonary embolism with CT scan). -CXR independently reviewed; no focal pneumonia or pneumothorax on my view, radiology read with findings suggestive of heart failure. On reassessment she reports her chest pain is gone. Will order nitro drip with plan to start this if her pain returns. Vital signs remain reassuring; normotensive, HR mildly elevated low 100's. On subsequent reassessment some mild burning substernal pain; nitro drip started with good effect and resolution of pain. No respiratory distress and good O2 sat on room air. 1 hour troponin increased to 554. Transferred via [place]. Lab Data Lab results reviewed: Yes I reviewed the patient's lab results. Labs: Laboratory Tests Range/Units 11/24/24 23:07 WBC (4.4-10.8) 10^3/uL 8.00 RBC (3.93-5.22) 10^6/uL 4.22 Hgb (11.2-15.7) g/dL 12.1 Hct (36.0-46.0) % 36.0 MCV (80-95) fL 85 MCH (27.0-33.0) pg 28.7 MCHC (32.0-36.0) % 33.6 RDW (11.7-14.6) % 14.6 Plt Count (130-400) 10^3/uL 245 MPV (8.0-11.0) fL 8.8 Immature Gran % % 0.3 Neutrophils % % 62.4 Lymphocytes % % 31.1 Monocytes % % 4.5 Eosinophils % % 1.1 Basophils % % 0.6 Nucleated RBC % (0.0-0.3) % 0.0 Absolute Neutrophils (1.2-6.7) 10^3/uL 4.99 Absolute Lymphocytes (1.2-3.4) 10^3/uL 2.49 Absolute Monocytes (0.1-0.8) 10^3/uL 0.36 Absolute Eosinophils (0.0-0.7) 10^3/uL 0.09 Absolute Basophils (0.0-0.2) 10^3/uL 0.05 PT (9.1-11.1) sec 10.5 INR (0.9-1.1) 1.0 APTT (20.6-30.2) sec 23.7 Sodium (136-145) mmol/L 131 L Potassium (3.5-5.1) mmol/L 4.8 Chloride (98-107) mmol/L 98 Carbon Dioxide (21.0-32.0) mmol/L 23.5 Anion Gap (3-11) mmol/L 9.5 BUN (7-18) mg/dL 19 H Creatinine (0.55-1.02) mg/dL 1.0 Est GFR (CKD-EPI 2020) (mL/min/1.73m2) 61.36 Glucose (74-106) mg/dL 217 H Calcium (8.5-10.1) mg/dL 9.4 Magnesium (1.8-2.4) mg/dL 2.0 Total Bilirubin (0.2-1.0) mg/dL 0.3 AST (15-37) U/L 21 ALT (14-59) U/L 28 Alkaline Phosphatase (46-116) U/L 107 Troponin I (<or=51) ng/L 377 H* NT-Pro-B Natriuret Pep (<300) pg/mL 2705 H Total Protein (6.4-8.2) g/dL 7.1 Albumin (3.4-5.0) g/dL 3.6 Lipase (<78) U/L 146 H Critical Care Time Critical Care Time Critical Care Time: Yes Total Critical Care Time: 46 Attestation: Due to a high probability of clinically significant, life threatening deterioration, the patient required my highest level of preparedness to intervene emergently and I personally spent this critical care time directly and personally managing the patient. This critical care time included obtaining a history; examining the patient; pulse oximetry; ordering and review of studies; arranging urgent treatment with development of a management plan; evaluation of patient's response to treatment; frequent reassessment; and, discussions with other providers. This critical care time was performed to assess and manage the high probability of imminent, life-threatening deterioration that could result in multi-organ failure. It was exclusive of separately billable procedures and treating other patients? PFSH All Active Problems (Updated 11/25/24 @ 00:03 by Arline Huffman MD) Acute myocardial infarction (Acute) Myocardial infarct (Chronic) COVID (Acute ~12/21/22) 12/21/22-sx onset. +exposure Decreased pedal pulses (Acute) Low back pain (Acute) Barretts esophagus (Acute ~05/27/22) Hyperplastic colon polyp (Acute ~05/27/22) Nuclear sclerotic cataract (Acute 04/28/21) 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 edema (Acute 04/28/21) Hyperlipidemia, unspecified (Chronic) 06/2018 labs: lipid panel acceptable on high potency statin, continue Essential hypertension (Chronic) Type 2 diabetes mellitus with retinopathy (Chronic 01/21/16) Tobacco use disorder (Chronic 07/22/14) Presbyopia (Chronic 08/26/16) Mild nonproliferative diabetic retinopathy associated with type 2 diabetes mellitus (Chronic 10/09/15) B/L, also with mild hypertensive retinopathy B/L Microalbuminuria due to type 2 diabetes mellitus (Chronic 01/21/16) Immunization refused (Chronic 04/23/16) Hypomagnesemia (Chronic 04/23/16) Gastroesophageal reflux disease (Chronic 07/22/14) Bilateral lower extremity edema (Chronic) Longstanding, worse in summer, probable venous insufficiency Allergic rhinitis (Chronic 07/03/15) Medical History Colon polyp Last Kathryn: 11/22/14 w/ Dr. Kameron Moore, tubulovillous adenoma, repeat 3 years [facility]UCK[facility] (obstructive sleep apnea) Surgical History Adenoidectomy Colonoscopy - MAC (05/27/22) 04/30/192014- Tubullovillous adenoma History of esophagogastroduodenoscopy (EGD) (~05/27/22) Tonsillectomy UPPP (Uvulopalatopharyngoplasty) (07/22/92) Family History Mother Arthritis Asthma Father Arthritis Son Asthma Daughter Asthma Daughter Asthma Sister Diabetes Brother Diabetes Brother Diabetes Social History (Updated 02/15/24 @ 17:17 by Lorena Tuttle LPN) Smoking/Tobacco Use Status: Current every day Tobacco Type: cigarettes Smoking packs per day: 1 Smoking cigarettes per day: 20.0 Years smoked: 30 Smoking pack- years: 30.00 Tobacco: How many years used: 25 Quit status: considering quitting (Has cut back some) Counseling given: patient declined Smoking risk assessment performed?: Yes Alcohol Intake: never Drug use: Never Substance use type: does not use Adopted: No Caregiver/Support person: No Foster care: No Household members: spouse Housing: house Number of Children: 3 number of grandchildren: 7 Communication Needs: Corrective Lenses Education Level: high school Details: 11th grade 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 Pets and animals: Yes Pets and animals: dog(s) Sexually active: Yes Do you think of yourself as: straight/heterosexual Current gender identity: female What is your relationship status?: How often do you talk on the phone with friends or family?: three or more times per week How often do you get together with friends or relatives?: twice per week Do you belong to any clubs or organized social groups?: no Panel score (0-1 are the most socially isolated patients): 1 What type of physical activity do you participate in: none Special fortino needs: No Seatbelt use: always Helmet use: No Drive intox or ride w/intox driver guard: No Water heater temp set <120 deg: Yes Working smoke detector in home: Yes Fire extinguisher in home: Yes Carbon monox detector in home: Yes Firearms in home: No Do you feel safe at home: Yes Do you feel safe in your relationship?: Yes Victim of physical abuse: No Victim of emotional abuse: No Victim of sexual abuse: No
[2024-11-24] MEDS: Aspirin 81 MG CHEW (23:34)
[2024-11-24 23:38] LABS: INR 1.0 (0.9-1.1); PTT Activated 23.7 sec (20.6-30.2); Prothrombin Time 10.5 sec (9.1-11.1)
--- NOTE | 2024-11-24 23:42 | DI.RAD_ITS ---
Exam(s) XR PORTABLE CHEST AP EXAM: XR PORTABLE CHEST AP CLINICAL HISTORY: Chest pain TECHNIQUE: 2D digital imaging was performed. COMPARISON: CR,XR XR PORTABLE CHEST AP from 05/02/2022 FINDINGS: LUNGS: Increased interstitial markings and pulmonary vascular prominence, consistent with CHF. No pleural abnormality seen. No focal area of consolidation. HEART: Normal size. AORTA: Normal diameter. BONES: Unremarkable for age. Soft tissues: Unremarkable. IMPRESSION: CHF. The preliminary [facility] report was reviewed. DATA REPOSITORY: RADIATION DOSE DELIVERED:
[2024-11-24 23:47] LABS: ALT 28 U/L (14-59); AST 21 U/L (15-37); Albumin 3.6 g/dL (3.4-5.0); Alkaline Phosphatase 107 U/L (46-116); Anion Gap 9.5 mmol/L (3-11); BUN 19 mg/dL (7-18); Bilirubin, Total 0.3 mg/dL (0.2-1.0); CO2 23.5 mmol/L (21.0-32.0); Calcium 9.4 mg/dL (8.5-10.1); Chloride 98 mmol/L (98-107); Estimated GFR 61.36 (mL/min/1.73m2); Glucose 217 mg/dL (74-106); Lipase 146 U/L (<78); Magnesium 2.0 mg/dL (1.8-2.4); NT-proBNP 2705 pg/mL (<300); Potassium 4.8 mmol/L (3.5-5.1); Sodium 131 mmol/L (136-145); Total Protein 7.1 g/dL (6.4-8.2)
[2024-11-24 23:48] LABS: Troponin I 377 ng/L (<or=51)
[2024-11-24 23:49] VITALS: BP 104/59
[2024-11-24 23:50] VITALS: PULSE 105; RESP 24; O2SAT 96
[2024-11-25] VITALS (20 sets, daily range): BP systolic 100–110; BP diastolic 57–64; PULSE 103–107; RESP 13–24; O2SAT 92–98
[2024-11-25 00:05] LABS: D-Dimer 906 ng/mlFEU (<500)
[2024-11-25] MEDS: Heparin in 0.45% NaCl 25,000 UNIT/250 ML BAG 8.5 UNIT IVINF (00:10)
[2024-11-25] MEDS: nitroGLYcerin in D5W 50 MG/250 ML BTL IV (00:33)
--- NOTE | 2024-11-25 01:05 | DI.[facility]_ITS ---
PROCEDURE INFORMATION: Exam: XR Chest Exam date and time: 11/24/2024 11:44 PM Age: 69 years old Clinical indication: Other: Chest pain TECHNIQUE: Imaging protocol: Radiologic exam of the chest. Views: 1 view. COMPARISON: CR XR PORTABLE CHEST AP 05/02/2022 7:37 PM FINDINGS: Lungs: Diffuse increase in interstitial lung markings. Findings of pulmonary vascular congestion. Pleural spaces: Unremarkable. No pleural effusion. No pneumothorax. Heart/Mediastinum: Unremarkable. No cardiomegaly. Bones/joints: Unremarkable. IMPRESSION: Findings suggest heart failure. Correlate clinically. Dictated and Authenticated by: Steven Belcher MD. Orderin Nathanael Nunn MD
[2024-11-25 01:06] LABS: Troponin I 554 ng/L (<or=51)
== END 2024-11-25 01:56 | disposition short-term general hospital (02) ==
PROVIDERS: Emergency Provider Student in an Organized Health Care Education/Training Program; PCP Nurse Practitioner
DX: I21.9 Acute myocardial infarction, unspecified (principal)
CPT/HCPCS: 80053; 83690; 93005; 96365; 99291; 71045; 83735; 83880; 84484; 85025; 85379; 85610; 85730; 93010; J1644; J2305; J3490

== ENCOUNTER 2024-12-17 20:38 | Emergency (ER) | payer MEDICARE, MEDICAID, SELFPAY ==
[2024-12-17] VITALS (24 sets, daily range): BP systolic 67–106; BP diastolic 38–55; PULSE 83–91; RESP 12–22; TEMP 36.4
--- NOTE | 2024-12-17 20:30 | RT.EKG_ITS ---
APPROVED REPORT Exam: Resting ECG Reason for Exam: chest pain Patient Location: E HR:86 bpm ECG Measurements Heart Rate 86 AXIS AR 157 P 52 QRSd 92 QRS -6 QT 374 T 7 QTc 450 Conclusion Sinus rhythm...normal P axis, V-rate 60- 99
[2024-12-17 20:58] LABS: Abs Immature Grans 0.03 10^3/uL (0.0-0.06); HCT 35.1 % (36.0-46.0); HGB 11.5 g/dL (11.2-15.7); Immature Grans % 0.4 %; MCH 29.7 pg (27.0-33.0); MCHC 32.8 % (32.0-36.0); MCV 91 fL (80-95); MPV 8.6 fL (8.0-11.0); Platelet Count 379 10^3/uL (130-400); RBC 3.87 10^6/uL (3.93-5.22); RDW 16.8 % (11.7-14.6); RDW-SD 55.3 fL; WBC 7.32 10^3/uL (4.4-10.8)
--- NOTE | 2024-12-17 21:16 | ED.GENADUL_ITS ---
Discharge Plan Disposition Patient Disposition: Home Condition: Stable Discharge Details Clinical Impression: Burning in the chest, Hyperglycemia Primary Care Provider: Cheri Ochoa ED Provider: Roberto Dalal Home Meds and New Rx's Prescriptions: Continued fluticasone propionate 50 mcg/actuation spray,suspension 1 - 2 spray NS DAILY PRN (Reason: nasal congestion) Qty: 47.4 3RF (DME) lancets Misc See Rx Instructions .ROUTE .MEDSUPPLY Qty: 100 3RF Rx Instructions: As directed to check morning fasting blood glucose. No insulin. Dispense c overed brand. (DME) Blood Glucose Test Strip See Rx Instructions .ROUTE .MEDSUPPLY Qty: 100 3RF Rx Instructions: As directed to check daily morning fasting blood glucose. No insulin. Dispense covered brand. atorvastatin [Lipitor] 40 mg tablet 40 mg PO DAILY Qty: 90 3RF metformin 1,000 mg tablet See Rx Instructions .ROUTE .COMPLEX Dose Instruction: TAKE ONE TABLET BY MOUTH EVERY MORNING; ONE-HALF TABLET BY MOUTH MIDDAY; AND ONE TABLET BY MOUTH IN THE AFTERNOON Rx Instructions: take one tab bid sitagliptin phosphate 50 mg tablet 50 mg PO DAILY MDD 50 mg Qty: 90 3RF Rx Instructions: 1/2 tab for a week, then 1 tab daily. (DME) blood-glucose meter [[employer] Ultra2 Meter] 1 EACH kit 1 ea Miscellaneous QID Qty: 1 Rx Instructions: New diagnosis of DM to check glucose 6 times daily for medication adjustment. aspirin 81 MG tablet,delayed release (DR/EC) 81 mg PO DAILY Qty: 90 (DME) compression socks, medium [Futuro Restoring Medium] 1 EACH misc 1 ea Miscellaneous DAILY Qty: 2 Rx Instructions: FOR VENOUS INSUFFICIENCY Please measure pt for appropriate size clopidogrel 75 mg tablet 75 mg PO DAILY empagliflozin 25 mg tablet 25 mg PO DAILY Rx Instructions: for 120 days. Starting furosemide [Lasix] 40 mg tablet 40 mg PO DAILY pantoprazole 40 mg tablet,delayed release (DR/EC) 40 mg PO DAILY metoprolol succinate 25 mg tablet extended release 24 hr 25 mg PO DAILY spironolactone 25 mg tablet 25 mg PO DAILY losartan 25 mg tablet See Rx Instructions PO DAILY Rx Instructions: take 1/2 tablet for 12.5mg orally daily; cetirizine [Zyrtec] 10 mg tablet 10 mg PO DAILY magnesium oxide 400 mg magnesium tablet 400 mg PO BID Discharge Instructions Additional Instructions: Your cardiac biomarkers did not show any signs of another heart attack. Your glucose level was elevated. 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 If you feel more ill or have severe worsening pain or new symptoms such as persistent vomiting or difficulty breathing return to the emergency department for reevaluation. HPI General Date/Time Provider Initiated Documentation: 12/17/24 20:38 . History of Present Illness 69 year old F presents to the emergency department with the chief complaint of chest burning, described as moderate, Patient started experiencing this day(s) (2) and it has been now resolved. other things that improve symptom(s), (antacids) No exacerbating factors reported . Patient notes no other symptoms.. Patient did receive the following treatments prior to arrival, none Related Data Home Medications ?Medication ?Instructions ?Recorded ?Confirmed blood-glucose meter (OneTouch #1 unit 08/15/14 5 Ultra2 Meter kit) aspirin 81 mg tablet,delayed 81 mg PO DAILY #90 tab-ca ps 10/09/14 12/17/24 release compression socks, medium (Futuro #2 ea 10/09/1512/17 Restoring Medium) blood sugar diagnostic (Blood #100 ea 08/06/21 5 Glucose Test strips) fluticasone propionate 50 1 - 2 spray NS DAILY PRN kathleen al 08/06/21 12/17/24 mcg/actuation nasal congestion #47.4 grams spray,suspension lancets #100 ea 08/06/21 12/17/24 sitagliptin phosphate 50 mg tablet 50 mg PO DAILY #90 tabs 02/15/24 12/17/24 atorvastatin 40 mg tablet (Lipitor) 40 mg PO DAILY #90 tab-caps 08/23/24 12/17/24 metformin 1,000 mg tablet See Rx Instructions .Route . COMPLEX 08/23/24 12/17/24 cetirizine 10 mg tablet (Zyrtec) 10 mg PO DAILY 12/17/24 clopidogrel 75 mg tablet 75 mg PO DAILY 12/07/2412/03 empagliflozin 25 mg tablet 25 mg PO DAILY 12/07/2412/03 furosemide 40 mg tablet (Lasix) 40 mg PO DAILY 5 12/17/24 losartan 25 mg tablet See Rx Instructions PO DAILY 12/07/24 12/17/24 metoprolol succinate 25 mg 25 mg PO DAILY 12/07/2412/03 tablet,extended release 24 hr pantoprazole 40 mg tablet,delayed 40 mg PO DAILY 12/0712/17/24 release spironolactone 25 mg tablet 25 mg PO DAILY 12/07/24 magnesium oxide 400 mg PO BID 12/11/2412/17 Previous Rx's ?Medication ?Instructions ?Recorded blood sugar diagnostic (Blood #100 ea 08/06/21 Glucose Test strips) fluticasone propionate 50 1 - 2 spray NS DAILY PRN kathleen al 08/06/21 mcg/actuation nasal congestion #47.4 grams spray,suspension lancets #100 ea 08/06/21 sitagliptin phosphate 50 mg tablet 50 mg PO DAILY #90 tabs 02/15/24 atorvastatin 40 mg tablet (Lipitor) 40 mg PO DAILY #90 tab-caps 08/23/24 Allergies Allergy/AdvReac Type Severity Reaction Status Date / Time amlodipine AdvReac Intermediate leg Verified 12/17/24 20:48 swelling lisinopril AdvReac Intermediate Leg Verified 12/17/24 20:48 swelling metronidazole AdvReac Intermediate terrible Verified 12/17/24 20:48 burning sensation in chest General Stated Complaint: Chest Pain LIZETH: 3 Review of Systems All systems reviewed & are unremarkable except as noted in HPI and below Constitutional Constitutional: Denies chills, Denies fever(s) and Denies weakness Cardiovascular Cardiovascular: Reports chest pain and Denies dyspnea Respiratory Respiratory: Denies cough and Denies dyspnea Gastrointestinal Gastrointestinal: Denies abdominal pain, Denies nausea and Denies vomiting Neurologic Neurologic: Denies weakness Exam Const General: no acute distress Orientation: alert [facility] Head: normal to inspection Ears: external ears normal General nose exam: external nose normal Mouth: moist mucous membranes Eyes General: appearance normal, both eyes and all related structures Neck Neck: normal visual inspection Resp Effort & Inspection: normal respiratory effort and able to speak in complete sentences Auscultation: clear to auscultation bilaterally Cardio Jugular venous pressure: no JVD Rate: regular rate Heart Sounds: no murmurs Skin General skin exam: no rashes or lesions noted Neuro General: patient alert and patient oriented x3 Extrem General: normal to inspection Psych Mental Status: mental status grossly normal Course Vital Signs Vital signs: Vital Signs Temperature 36.4 C 12/17/24 20:41 Pulse 90 12/17/24 20:41 Respiratory Rate 18 12/17/24 20:41 Blood Pressure 96/52 L 12/17/24 20:41 Temperature 36.4 C 12/17/24 20:41 Pulse 90 12/17/24 20:41 Respiratory Rate 18 12/17/24 20:41 Blood Pressure 96/52 L 12/17/24 20:41 Oxygen Delivery Method Room Air 12/17/24 20:41 Oxygen Flow Rate 0 12/17/24 20:41 Pain Level 0 12/17/24 20:41 Lab/Test Results Lab/Test Results: Laboratory Tests Range/Units 12/17/24 20:45 WBC (4.4-10.8) 10^3/uL 7.32 RBC (3.93-5.22) 10^6/uL 3.87 L Hgb (11.2-15.7) g/dL 11.5 Hct (36.0-46.0) % 35.1 L MCV (80-95) fL 91 MCH (27.0-33.0) pg 29.7 MCHC (32.0-36.0) % 32.8 RDW (11.7-14.6) % 16.8 H Plt Count (130-400) 10^3/uL 379 MPV (8.0-11.0) fL 8.6 Immature Gran % % 0.4 Neutrophils % % 67.6 Lymphocytes % % 22.8 Monocytes % % 7.1 Eosinophils % % 1.4 Basophils % % 0.7 Nucleated RBC % (0.0-0.3) % 0.0 Absolute Neutrophils (1.2-6.7) 10^3/uL 4.95 Absolute Lymphocytes (1.2-3.4) 10^3/uL 1.67 Absolute Monocytes (0.1-0.8) 10^3/uL 0.52 Absolute Eosinophils (0.0-0.7) 10^3/uL 0.10 Absolute Basophils (0.0-0.2) 10^3/uL 0.05 Medical Decision Making 69-year-old female with a history of recent NSTEMI in November for which she was transferred from here to [facility] and states she had 2 stents placed. She says she has been having continued chest burning especially with eating and this happened today after eating and took some antacids which resolved the pain. She is currently not having any pain. She denies having any nausea, diaphoresis, radiation of pain. She is well-appearing speaking full sentences in no stress. She has no calf tenderness, clear lung sounds, no JVD. I suspect acid reflux or esophagitis but given her recent NSTEMI I will check a CBC and CMP and troponins. She has no tearing back pain to set checks dissection, no tachycardia or hypoxia to suggest PE. Glucose just over 500 and she states that she has been having trouble controlling her glucose when she was transferred to department. Will check a VBG and give insulin and reassess. VBG without acidosis and fingerstick improved to 400. She is still asymptomatic. Delta troponin negative. 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 Medical Records Medical records reviewed: Yes I reviewed the patient's medical records. Lab Data Lab results reviewed: Yes I reviewed the patient's lab results. ECG Data Attestation: I personally reviewed and interpreted this ECG (s) as follows: Prior ECG tracings: available for review Interpretation: sinus rate of 86 no stemi PFSH All Active Problems (Updated 12/17/24 @ 22:29 by Roberto Dalal MD) Hyperglycemia (Acute) Burning in the chest (Acute) [place] cardiac [place] [facility] [place] systolic heart failure (Acute) [place] [facility] [place] Thrombocytopenia (Chronic) [place] [facility] [place] Hx of heart artery stent (Chronic) [place] [facility] [place] x 2 Acute myocardial infarction (Acute) Myocardial infarct (Chronic) COVID (Acute ~12/21/22) 12/21/22-sx onset. +exposure Decreased pedal pulses (Acute) Low back pain (Acute) Barretts esophagus (Acute ~05/27/22) Hyperplastic colon polyp (Acute ~05/27/22) Nuclear sclerotic cataract (Acute 04/28/21) 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 edema (Acute 04/28/21) Hyperlipidemia, unspecified (Chronic) 06/2018 labs: lipid panel acceptable on high potency statin, continue Essential hypertension (Chronic) Type 2 diabetes mellitus with retinopathy (Chronic 01/21/16) Tobacco use disorder (Chronic 07/22/14) Presbyopia (Chronic 08/26/16) Mild nonproliferative diabetic retinopathy associated with type 2 diabetes mellitus (Chronic 10/09/15) B/L, also with mild hypertensive retinopathy B/L Microalbuminuria due to type 2 diabetes mellitus (Chronic 01/21/16) Immunization refused (Chronic 04/23/16) Hypomagnesemia (Chronic 04/23/16) Gastroesophageal reflux disease (Chronic 07/22/14) Bilateral lower extremity edema (Chronic) Longstanding, worse in summer, probable venous insufficiency Allergic rhinitis (Chronic 07/03/15) Medical History Colon polyp Last [facility]: 11/22/14 w/ Dr. Kameron Moore, tubulovillous adenoma, repeat 3 years [facility]UCK[facility] (obstructive sleep apnea) Surgical History Adenoidectomy Colonoscopy - MAC (05/27/22) 04/30/192014- Tubullovillous adenoma History of esophagogastroduodenoscopy (EGD) (~05/27/22) Tonsillectomy UPPP (Uvulopalatopharyngoplasty) (07/22/92) Family History Mother Arthritis Asthma Father Arthritis Son Asthma Daughter Asthma Daughter Asthma Sister Diabetes Brother Diabetes Brother Diabetes Social History (Updated 02/15/24 @ 17:17 by Lorena Tuttle LPN) Smoking/Tobacco Use Status: Former Tobacco Use Tobacco: How many years used: 25 Quit status: considering quitting (Has cut back some) Counseling given: patient declined Smoking risk assessment performed?: Yes Alcohol Intake: never Drug use: Never Substance use type: does not use Adopted: No Caregiver/Support person: No Foster care: No Household members: spouse Housing: house Number of Children: 3 number of grandchildren: 7 Communication Needs: Corrective Lenses Education Level: high school Details: 11th grade 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 Pets and animals: Yes Pets and animals: dog(s) Sexually active: Yes Do you think of yourself as: straight/heterosexual Current gender identity: female What is your relationship status?: How often do you talk on the phone with friends or family?: three or more times per week How often do you get together with friends or relatives?: twice per week Do you belong to any clubs or organized social groups?: no Panel score (0-1 are the most socially isolated patients): 1 What type of physical activity do you participate in: none Special fortino needs: No Seatbelt use: always Helmet use: No Drive intox or ride w/intox recycling collections driver: No Water heater temp set <120 deg: Yes Working smoke detector in home: Yes Fire extinguisher in home: Yes Carbon monox detector in home: Yes Firearms in home: No Do you feel safe at home: Yes Do you feel safe in your relationship?: Yes Victim of physical abuse: No Victim of emotional abuse: No Victim of sexual abuse: No
[2024-12-17 21:17] LABS: ALT 30 U/L (14-59); AST 18 U/L (15-37); Albumin 3.0 g/dL (3.4-5.0); Alkaline Phosphatase 135 U/L (46-116); Anion Gap 11.0 mmol/L (3-11); BUN 37 mg/dL (7-18); Bilirubin, Total 0.6 mg/dL (0.2-1.0); CO2 26.0 mmol/L (21.0-32.0); Calcium 9.6 mg/dL (8.5-10.1); Chloride 95 mmol/L (98-107); Estimated GFR 54.73 (mL/min/1.73m2); Magnesium 1.9 mg/dL (1.8-2.4); Potassium 5.1 mmol/L (3.5-5.1); Sodium 132 mmol/L (136-145); Total Protein 7.5 g/dL (6.4-8.2); Troponin I 21 ng/L (<or=51)
[2024-12-17 21:21] LABS: Glucose 517 mg/dL (74-106)
[2024-12-17 22:08] LABS: Troponin I 20 ng/L (<or=51)
[2024-12-17 22:21] LABS: BE (Venous) 0 mmol/L (-2-3); HCO3 (Venous) 24 mmol/L (23-28); O2 Sat (Venous) 79 %; TCO2 (Venous) 23 mmol/L (24-29); pCO2 (Venous) 40 mmHg (41-51); pO2 (Venous) 46 mmHg
== END 2024-12-17 22:47 | disposition home or self-care (01) ==
PROVIDERS: Emergency Provider Emergency Medicine; PCP Nurse Practitioner
DX: R07.9 Chest pain, unspecified (principal); E83.52 Hypercalcemia
CPT/HCPCS: 36415; 36416; 82962; 80053; 82805; 93005; 99284; 83735; 84484; 85025; 93010; 99283

== ENCOUNTER 2025-01-03 01:53 | Outpatient (CLI) | payer MEDICARE, MEDICAID, SELFPAY ==
--- NOTE | 2025-01-03 06:45 | DI.RAD_ITS ---
Exam(s) XR CHEST 2V PA LATERAL EXAM: XR CHEST 2V PA LATERAL CLINICAL HISTORY: f/u resolution PNEUMONIA,J18.9 TECHNIQUE: 2D digital imaging was performed. Two views. COMPARISON: CR,XR XR PORTABLE CHEST AP from 11/24/2024 FINDINGS: HEART: Normal size. Coronary artery stents. Aorta: Not dilated. PULMONARY VASCULATURE: Normal. MEDIASTINUM: Unremarkable. LUNGS: Clear. PLEURAL SPACE: No pleural effusion or pneumothorax. BONE:Unremarkable for age. SOFT TISSUES: Unremarkable. IMPRESSION: No acute abnormality. DATA REPOSITORY: RADIATION DOSE DELIVERED:
== END 2025-01-03 02:13 ==
PROVIDERS: PCP Nurse Practitioner; Visit Provider Family Medicine
DX: J18.9 Pneumonia, unspecified organism (principal); E11.319 Type 2 diabetes mellitus with unspecified diabetic retinopathy without macular edema
CPT/HCPCS: 71046

== ENCOUNTER 2025-01-29 11:49 | Outpatient (CLI) | payer MEDICARE, MEDICAID, SELFPAY ==
[2025-01-29 11:59] LABS: HCT 38.5 % (36.0-46.0); HGB 13.1 g/dL (11.2-15.7); MCH 30.3 pg (27.0-33.0); MCHC 34.0 % (32.0-36.0); MCV 89 fL (80-95); MPV 9.1 fL (8.0-11.0); Platelet Count 222 10^3/uL (130-400); RBC 4.33 10^6/uL (3.93-5.22); RDW 14.4 % (11.7-14.6); RDW-SD 46.5 fL; WBC 6.29 10^3/uL (4.4-10.8)
[2025-01-29 12:57] LABS: ALT 47 U/L (14-59); AST 31 U/L (15-37); Albumin 3.9 g/dL (3.4-5.0); Alkaline Phosphatase 98 U/L (46-116); Anion Gap 12.7 mmol/L (3-11); BUN 26 mg/dL (7-18); Bilirubin, Total 0.5 mg/dL (0.2-1.0); CO2 23.3 mmol/L (21.0-32.0); Calcium 9.8 mg/dL (8.5-10.1); Chloride 97 mmol/L (98-107); Estimated GFR 69.64 (mL/min/1.73m2); Glucose 277 mg/dL (74-106); Potassium 4.5 mmol/L (3.5-5.1); Sodium 133 mmol/L (136-145); Total Protein 7.4 g/dL (6.4-8.2)
[2025-01-29 13:25] LABS: NT-proBNP 1157 pg/mL (<300)
== END 2025-01-29 11:50 | disposition home or self-care (01) ==
LOC: LBO 11:50
PROVIDERS: Nurse Practitioner Family; Visit Provider Family Medicine
DX: I21.4 Non-ST elevation (NSTEMI) myocardial infarction (principal); I50.21 Acute systolic (congestive) heart failure; J18.9 Pneumonia, unspecified organism; Z95.5 Presence of coronary angioplasty implant and graft; D69.6 Thrombocytopenia, unspecified; K68.3 Retroperitoneal hematoma
CPT/HCPCS: 36415; 80053; 85027; 83880

== ENCOUNTER 2025-03-26 14:10 | Outpatient (CLI) | payer MEDICARE, MEDICAID, SELFPAY ==
[2025-03-26 16:28] LABS: Anion Gap 13 mmol/L (3-11); BUN 24 mg/dL (9-23); CO2 28.0 mmol/L (20.0-31.0); Calcium 9.8 mg/dL (8.3-10.6); Chloride 101 mmol/L (98-107); Glucose 179 mg/dL (74-106); Potassium 4.2 mmol/L (3.5-5.1); Sodium 142 mmol/L (136-145)
== END 2025-03-26 14:11 | disposition home or self-care (01) ==
LOC: LBO 14:10
PROVIDERS: Visit Provider Nurse Practitioner Family
DX: I21.4 Non-ST elevation (NSTEMI) myocardial infarction (principal)
CPT/HCPCS: 36415; 80048